=== PATIENT | female | born 1940 | race Caucasian/White ===

== ENCOUNTER 2017-09-19 07:37 | Observation (INO) | payer MEDICARE, OTHER ==
[2017-09-19] MEDS ORDERED: ASPIRIN 81 MG PO STA (08:15)
[2017-09-19] MEDS ORDERED: NITROGLYCERIN OINT 1 INCH/GM PACKET TOPICAL STA (08:15)
--- NOTE | 2017-09-19 08:17 | ED ---
General Adult HPI - General Chief complaint: Chest Pain Stated complaint: SOB Time Seen by Provider: 09/19/17 07:45 Source: patient, RN notes reviewed Mode of arrival: wheelchair Limitations: no limitations - History of Present Illness Initial comments: This is a 76-year-old female who presents emergency Department with a distant history of smoking patient states she used to be a diabetic but was recently taken off metformin she does have high blood pressure and high cholesterol and a very strong family history of heart disease. She presents today complaining of difficulty breathing which started about 2:30 this morning and pressure on her lower chest. Patient states the pain radiates to her back. Patient denies any recent fever chills or cough. Patient denies any nausea or vomiting. Patient denies abdominal pain. Patient denies any lightheadedness dizziness or near-syncopal episode. Patient denies any swelling legs or calf tenderness. Patient has a history of atrial fibrillation and is on Xarelto - Related Data Home Medications Medication Instructions Recorded Confirmed Atorvastatin [Lipitor] 40 mg PO DAILY 05/23/14 09/19/17 Bethanechol Chloride [Urecholine] 25 mg PO BID 05/23/14 09/19/17 Carvedilol [Coreg] 3.125 mg PO BID 05/23/14 09/19/17 Montelukast Sodium [Singulair] 10 mg PO DAILY PRN 05/23/14 09/19/17 Aspirin EC [Ecotrin Low Dose] 81 mg PO DAILY 09/19/17 09/19/17 Lisinopril [Prinivil] 5 mg PO DAILY 09/19/17 09/19/17 Multivitamins, Thera [Multivitamin 1 tab PO DAILY 09/19/17 09/19/17 (formulary)] Rivaroxaban [Xarelto] 20 mg PO DAILY 09/19/17 09/19/17 Allergies Allergy/AdvReac Type Severity Reaction Status Date / Time albuterol AdvReac Rapid Verified 09/19/17 08:40 Heart Rate codeine AdvReac Rapid Verified 09/19/17 08:40 Heart Rate sulfamethoxazole AdvReac Nausea & Verified 09/19/17 08:40 [From Bactrim] Vomiting trimethoprim [From Bactrim] AdvReac Nausea & Verified 09/19/17 08:40 Vomiting Review of Systems ROS Statement: Those systems with pertinent positive or pertinent negative responses have been documented in the HPI. ROS Other: All systems not noted in ROS Statement are negative. Past Medical History Past Medical History: Atrial Fibrillation, Coronary Artery Disease (CAD), Chest Pain / Angina, Heart Failure, Diabetes Mellitus, Hyperlipidemia, Hypertension, Pneumonia Additional Past Medical History / Comment(s): 03/02/15 Pt presented to [facility] ER on 03/01/15 via EMS with bleeding since 0900 that day and vomiting of blood. In ER she was noted to have blood in her stool. She passed out at home and feels weak and dizzy. She is admitted with syncopy, gum hemorrhage, elevated potassioum.lethargy. Other HX: chronic systolic dysfunction with EF 55-60% low normal, NIDDM type II, hypomagnesemia, DJD, heart mummur History of Any Multi-Drug Resistant Organisms: MRSA Date of last positivie culture/infection: over 2 yrs ago- MDRO Source:: wound left abdomen Past Surgical History: Adenoidectomy, Appendectomy, Cholecystectomy, Coronary Bypass/CABG, Heart Catheterization, Orthopedic Surgery, Tonsillectomy Additional Past Surgical History / Comment(s): Cabg 4 vessel 2005? in [facility], right shoulder rotator cuff repair, right knee arthroscopy, R metatarsal surgery after fx, colonoscopy- normal Past Anesthesia/Blood Transfusion Reactions: Postoperative Nausea & Vomiting ( PONV) Past Psychological History: No Psychological Hx Reported Smoking Status: Former smoker Past Alcohol Use History: Occasional Past Drug Use History: None Reported - Past Family History Father Family Medical History: Congestive Heart Failure (CHF), CVA/TIA, Myocardial Infarction ([place]) Additional Family Medical History / Comment(s): Father at age 61 yrs. Mother Family Medical History: Congestive Heart Failure (CHF) Additional Family Medical History / Comment(s): Mother at age 83yrs. General Exam - General Exam Comments Initial Comments: GENERAL: Patient is well-developed and well-nourished. Patient is nontoxic and well- hydrated and is in mild distress. ENT: Neck is soft and supple. No significant lymphadenopathy is noted. Oropharynx is clear. Moist mucous membranes. Neck has full range of motion without eliciting any pain. EYES: The sclera were anicteric and conjunctiva were pink and moist. Extraocular movements were intact and pupils were equal round and reactive to light. Eyelids were unremarkable. PULMONARY: Unlabored respirations. Good breath sounds bilaterally. No audible rales rhonchi or wheezing was noted. CARDIOVASCULAR: There is a regular rate and rhythm without any murmurs gallops or rubs. ABDOMEN: Soft and nontender with normal bowel sounds. No palpable organomegaly was noted. There is no palpable pulsatile mass. SKIN: Skin is clear with no lesions or rashes and otherwise unremarkable. NEUROLOGIC: Patient is alert and oriented x3. Cranial nerves II through XII are grossly intact. Motor and sensory are also intact. Normal speech, volume and content. Symmetrical smile. MUSCULOSKELETAL: Normal extremities with adequate strength and full range of motion. No lower extremity swelling or edema. No calf tenderness. LYMPHATICS: No significant lymphadenopathy is noted PSYCHIATRIC: Normal psychiatric evaluation. Normal interpersonal interactions appears functionally intact in deals appropriately with others. No signs of depression. No signs of anxiety. Limitations: no limitations Course Vital Signs 09/19/17 09/19/17 07:49 09:14 Temperature 98.0 F Pulse Rate 68 69 Respiratory 18 16 Rate Blood Pressure 134/81 183/72 O2 Sat by Pulse 96 100 Oximetry Medical Decision Making - Medical Decision Making EKG shows an atrial fibrillation at a rate of 67 bpm QRS is 90 QT interval 388 QTC is 409. Patient's EKG shows no significant ST segment elevation or depression Chest x-ray shows no acute abnormality. Patient does not need to be placed on a blood thinner because she is already on a blood thinner. I spoke with Dr. Jaquez agreed to admit the patient admitted the patient I consult to need giving the patient aspirin and Nitropaste on the floor. I consult cardiology and I wrote admitting orders. - Lab Data Result diagrams: 09/19/17 08:12 09/19/17 08:12 Lab Results 09/19/17 09/19/17 09/19/17 Range/Units 08:12 08:12 08:12 WBC 11.0 H (3.8-10.6) k/uL RBC 4.77 (3.80-5.40) m/uL Hgb 13.8 (11.4-16.0) gm/dL Hct 40.8 (34.0-46.0) % MCV 85.5 (80.0-100.0) fL MCH 28.9 (25.0-35.0) pg MCHC 33.8 (31.0-37.0) g/dL RDW 15.1 (11.5-15.5) % Plt Count 206 (150-450) k/uL Neutrophils % 77 % Lymphocytes % 15 % Monocytes % 4 % Eosinophils % 2 % Basophils % 0 % Neutrophils # 8.5 H (1.3-7.7) k/uL Lymphocytes # 1.7 (1.0-4.8) k/uL Monocytes # 0.5 (0-1.0) k/uL Eosinophils # 0.2 (0-0.7) k/uL Basophils # 0.0 (0-0.2) k/uL PT (9.0-12.0) sec INR (<1.2) APTT (22.0-30.0) sec Sodium 144 (137-145) mmol/L Potassium 4.1 (3.5-5.1) mmol/L Chloride 104 (98-107) mmol/L Carbon Dioxide 27 (22-30) mmol/L Anion Gap 13 mmol/L BUN 15 (7-17) mg/dL Creatinine 0.68 (0.52-1.04) mg/dL Est GFR (CKD-EPI)AfAm >90 (>60 ml/min/1.73 sqM) Est GFR (CKD-EPI)NonAf 86 (>60 ml/min/1.73 sqM) Glucose 94 (74-99) mg/dL Calcium 9.6 (8.4-10.2) mg/dL Magnesium 1.6 (1.6-2.3) mg/dL Total Bilirubin 1.1 (0.2-1.3) mg/dL AST 36 (14-36) U/L ALT 52 (9-52) U/L Alkaline Phosphatase 71 (38-126) U/L Total Creatine Kinase 50 (30-135) U/L CK-MB (CK-2) 0.8 (0.0-2.4) ng/mL CK-MB (CK-2) Rel Index 1.6 Troponin I <0.012 (0.000-0.034) ng/mL Total Protein 6.7 (6.3-8.2) g/dL Albumin 4.1 (3.5-5.0) g/dL Amylase (30-110) U/L Lipase (23-300) U/L 09/19/17 09/19/17 Range/Units 08:12 08:12 WBC (3.8-10.6) k/uL RBC (3.80-5.40) m/uL Hgb (11.4-16.0) gm/dL Hct (34.0-46.0) % MCV (80.0-100.0) fL MCH (25.0-35.0) pg MCHC (31.0-37.0) g/dL RDW (11.5-15.5) % Plt Count (150-450) k/uL Neutrophils % % Lymphocytes % % Monocytes % % Eosinophils % % Basophils % % Neutrophils # (1.3-7.7) k/uL Lymphocytes # (1.0-4.8) k/uL Monocytes # (0-1.0) k/uL Eosinophils # (0-0.7) k/uL Basophils # (0-0.2) k/uL PT 13.9 H (9.0-12.0) sec INR 1.5 H (<1.2) APTT 36.4 H (22.0-30.0) sec Sodium (137-145) mmol/L Potassium (3.5-5.1) mmol/L Chloride (98-107) mmol/L Carbon Dioxide (22-30) mmol/L Anion Gap mmol/L BUN (7-17) mg/dL Creatinine (0.52-1.04) mg/dL Est GFR (CKD-EPI)AfAm (>60 ml/min/1.73 sqM) Est GFR (CKD-EPI)NonAf (>60 ml/min/1.73 sqM) Glucose (74-99) mg/dL Calcium (8.4-10.2) mg/dL Magnesium (1.6-2.3) mg/dL Total Bilirubin (0.2-1.3) mg/dL AST (14-36) U/L ALT (9-52) U/L Alkaline Phosphatase (38-126) U/L Total Creatine Kinase (30-135) U/L CK-MB (CK-2) (0.0-2.4) ng/mL CK-MB (CK-2) Rel Index Troponin I (0.000-0.034) ng/mL Total Protein (6.3-8.2) g/dL Albumin (3.5-5.0) g/dL Amylase 54 (30-110) U/L Lipase 66 (23-300) U/L Disposition Clinical Impression: Unstable angina pectoris Disposition: ADMITTED IP TO THIS HOSP Referrals: Verito Khan MD [Primary Care Provider] - 1-2 days Time of Disposition: 09:50
[2017-09-19 08:33] LABS: Basophils % (A) 0 %; Eosinophils # (A) 0.2 k/uL (0-0.7); Eosinophils % (A) 2 %; HCT 40.8 % (34.0-46.0); HGB 13.8 gm/dL (11.4-16.0); Lymphocytes # (A) 1.7 k/uL (1.0-4.8); Lymphocytes % (A) 15 %; MCH 28.9 pg (25.0-35.0); MCHC 33.8 g/dL (31.0-37.0); MCV 85.5 fL (80.0-100.0); Mean Platelet Volume 9.2; Monocytes # (A) 0.5 k/uL (0-1.0); Monocytes % (A) 4 %; Neutrophils # (A) 8.5 k/uL (1.3-7.7); Neutrophils % (A) 77 %; Platelet Count 206 k/uL (150-450); RBC 4.77 m/uL (3.80-5.40); RDW 15.1 % (11.5-15.5)
--- NOTE | 2017-09-19 08:35 | XR ---
EXAMINATION TYPE: XR chest 2V DATE OF EXAM: 09/19/2017 COMPARISON: 03/02/2015 HISTORY: Chest pain TECHNIQUE: Frontal and lateral views of the chest are obtained. FINDINGS: There is no focal air space opacity, pleural effusion, or pneumothorax seen. Post CABG joann nges are seen of the chest. Chronic right hemidiaphragm elevation and right pleural parenchymal scarr ing as well as left upper lung pleural parenchymal scarring are similar to the prior exam of 2014. Th e cardiac silhouette size is similar to the prior and mildly enlarged. The osseous structures are i ntact. IMPRESSION: Chronic changes with no acute cardiopulmonary process.
[2017-09-19 08:41] LABS: INR 1.5 (<1.2); Partial Thromboplastin Time 36.4 sec (22.0-30.0); Prothrombin Time 13.9 sec (9.0-12.0)
[2017-09-19 08:55] LABS: ALT 52 U/L (9-52); AST 36 U/L (14-36); Albumin 4.1 g/dL (3.5-5.0); Alkaline Phosphatase 71 U/L (38-126); Anion Gap 13 mmol/L; Blood Urea Nitrogen 15 mg/dL (7-17); Calcium 9.6 mg/dL (8.4-10.2); Carbon Dioxide 27 mmol/L (22-30); Chloride 104 mmol/L (98-107); Glucose 94 mg/dL (74-99); Magnesium 1.6 mg/dL (1.6-2.3); Potassium 4.1 mmol/L (3.5-5.1); Sodium 144 mmol/L (137-145); Total Bilirubin 1.1 mg/dL (0.2-1.3); Total Protein 6.7 g/dL (6.3-8.2)
[2017-09-19 09:02] LABS: Creatine Kinase 50 U/L (30-135)
[2017-09-19 09:14] LABS: Creatine Kinase MB 0.8 ng/mL (0.0-2.4); Troponin I <0.012 ng/mL (0.000-0.034)
[2017-09-19 09:39] LABS: Amylase 54 U/L (30-110); Lipase 66 U/L (23-300)
[2017-09-19] MEDS ORDERED: NITROGLYCERIN SL TABS 0.4 MG TAB SUBLINGUAL PRN (09:52)
[2017-09-19] MEDS ORDERED: MONTELUKAST 10 MG TAB PO PRN (10:51)
[2017-09-19] MEDS ORDERED: RIVAROXABAN 20 MG TAB PO SCH ×2 (11:00→21:00)
[2017-09-19 11:52] LABS: Creatine Kinase 46 U/L (30-135)
[2017-09-19 12:03] LABS: Creatine Kinase MB 0.8 ng/mL (0.0-2.4); Troponin I <0.012 ng/mL (0.000-0.034)
[2017-09-19] MEDS: ATORVASTATIN 40 MG TAB PO SCH (12:33)
[2017-09-19] MEDS: BETHANECHOL 25 MG TAB PO SCH ×2 (12:33→20:07)
[2017-09-19] MEDS: CARVEDILOL 3.125 MG TAB PO SCH ×2 (12:33→20:07)
[2017-09-19] MEDS: MULTIVITAMINS, THERA 1 EACH TAB PO SCH (12:40)
[2017-09-19] MEDS: LISINOPRIL 5 MG TAB PO SCH (12:42)
[2017-09-19] MEDS ORDERED: NITROGLYCERIN OINT 1 INCH/GM PACKET TOPICAL SCH (13:00)
--- NOTE | 2017-09-19 13:32 | P.CRDCN ---
History of Present Illness History of present illness: Mrs. Alva is a pleasant 76-year-old female past medical history significant for coronary artery disease s/p bypass grafting in 2005, paroxysmal atrial fibrillation on long-term anticoagulation, diabetes mellitus, dyslipidemia and hypertension. She follows Dr. Soto in the office. If necessary consultation for complaints of chest pain. She states last night she started feeling a burning/squeezing sensation in the epigastric region with associated belching. She aslo has noticed an increase in shortness of breath with exertion over the last couple days. She was up most of this night trying to get comfortable. The discomfort was worse when she would lay on her right side so she just sat up and the pain seemed to improve. She still feels mild burning in epigastric region at the time of my exam. She denies associated palpitations, nausea, vomiting, diaphoresis, PND, orthopnea or dizziness. EKG reveals atrial fibrillation with controlled ventricular response. Chest x-ray is negative for an acute cardiopulmonary process. With evidence of chronic changes. Laboratory data reviewed, WBC 11, hemoglobin 13.8, platelets 206, sodium 144, potassium 4.1, magnesium 1.6, creatinine 0.68, cardiac enzymes negative 2. Current cardiac medications include atorvastatin 40 mg daily, carvedilol 3.125 mg twice a day, Xarelto 20 mg daily, aspirin 81 mg daily and lisinopril 5 mg daily. Most recent echocardiogram performed in the office reveals preserved left ventricular systolic function with ejection fraction 55% with moderate MR, aortic insufficiency and a dilated aortic root. Most recent Lexiscan performed in the office December 2015 was negative for reversible cardiac ischemia. Review of Systems At the time of my exam: CONSTITUTIONAL: Denies fever. Denies chills. EYES: Denies blurred vision. Denies vision changes. Denies eye pain. EARS, NOSE, MOUTH & THROAT: Denies headache. Denies sore throat. Denies ear pain. CARDIOVASCULAR: Denies chest pain. Complains of exertional shortness of breath. Denies orthopnea. Denies PND. Denies palpitations. RESPIRATORY: Denies cough. GASTROINTESTINAL: Complains of epigastric discomfort. Denies diarrhea. Denies constipation. Denies nausea. Denies vomiting. MUSCULOSKELETAL: Denies myalgias. INTEGUMENTARY: Denies pruitis. Denies rash. NEUROLOGIC: Denies numbness. Denies tingling. Denies weakness. PSYCHIATRIC: Denies anxiety. Denies depression. ENDOCRINE: Denies fatigue. Denies weight change. Denies polydipsia. Denies polyurina. GENITOURINARY: Denies burning, hematuria or urgency with micturation. HEMATOLOGIC: Denies history of anemia. Denies bleeding. Past Medical History Past Medical History: Atrial Fibrillation, Coronary Artery Disease (CAD), Chest Pain / Angina, Heart Failure, Diabetes Mellitus, Hyperlipidemia, Hypertension, Pneumonia, Syncope Additional Past Medical History / Comment(s): Afib/flutter, blood loss anemia/ syncope after teeth extraction/hemorrhage with blood transfusion, murmur, hypomagnesemia, frequent UTIs/bladder tipped and does not empty entirely, past r foot fracture with surgery. History of Any Multi-Drug Resistant Organisms: MRSA Date of last positivie culture/infection: 2012 MDRO Source:: wound left abdomen Past Surgical History: Adenoidectomy, Appendectomy, Cholecystectomy, Coronary Bypass/CABG, Heart Catheterization, Orthopedic Surgery, Tonsillectomy Additional Past Surgical History / Comment(s): Cabg 4 vessel 2005? in [facility], right shoulder rotator cuff repair, right knee arthroscopy, R metatarsal surgery after fx, colonoscopy- normal Past Anesthesia/Blood Transfusion Reactions: Postoperative Nausea & Vomiting ( PONV) Additional Past Anesthesia/Blood Transfusion Reaction / Comment(s): Pt has received blood in past without reaction. Smoking Status: Former smoker - Past Family History Father Family Medical History: Congestive Heart Failure (CHF), CVA/TIA, Myocardial Infarction ([place]) Additional Family Medical History / Comment(s): Father at age 61 yrs. Mother Family Medical History: Congestive Heart Failure (CHF) Additional Family Medical History / Comment(s): Mother at age 83yrs. Medications and Allergies Home Medications Medication Instructions Recorded Confirmed Type Atorvastatin [Lipitor] 40 mg PO DAILY 05/23/14 09/19/17 History Bethanechol Chloride [Urecholine] 25 mg PO BID 05/23/14 09/19/17 History Carvedilol [Coreg] 3.125 mg PO BID 05/23/14 09/19/17 History Montelukast Sodium [Singulair] 10 mg PO DAILY PRN 05/23/14 09/19/17 History Aspirin EC [Ecotrin Low Dose] 81 mg PO DAILY 09/19/17 09/19/17 History Lisinopril [Prinivil] 5 mg PO DAILY 09/19/17 09/19/17 History Multivitamins, Thera [Multivitamin 1 tab PO DAILY 09/19/17 09/19/17 History (formulary)] Rivaroxaban [Xarelto] 20 mg PO DAILY 09/19/17 09/19/17 History Allergies Allergy/AdvReac Type Severity Reaction Status Date / Time albuterol AdvReac Rapid Verified 09/19/17 08:40 Heart Rate codeine AdvReac Rapid Verified 09/19/17 08:40 Heart Rate sulfamethoxazole AdvReac Nausea & Verified 09/19/17 08:40 [From Bactrim] Vomiting trimethoprim [From Bactrim] AdvReac Nausea & Verified 09/19/17 08:40 Vomiting Physical Exam Vitals: Vital Signs Temp Pulse Pulse Resp BP BP Pulse Ox 09/19/17 10:40 97.7 F 58 L 18 143/84 95 09/19/17 10:33 98.2 F 60 16 158/80 100 09/19/17 09:14 69 16 183/72 100 09/19/17 07:49 98.0 F 68 18 134/81 96 Intake and Output 09/18/17 09/19/17 09/19/17 22:59 06:59 14:59 Other: Weight 85.275 kg Blood pressure 143/84 rate 58 afebrile maintaining oxygen saturation on room air GENERAL: This is a 76-year-old female in no apparent distress at the time of my examination. HEENT: Head is atraumatic, normocephalic. Pupils are equal, round. Sclerae anicteric. Conjunctivae are clear. Mucous membranes of the mouth are moist. Neck is supple. There is no jugular venous distention. No carotid bruit is heard. LUNGS: Clear to auscultation no wheezes, rales or rhonchi. No chest wall tenderness is noted on palpation or with deep breathing. HEART: Regular rate and rhythm with systolic ejection murmur at the base, no rubs or gallops. S1 and S2 heard. ABDOMEN: Soft, nontender. Bowel sounds are heard. No organomegaly noted. EXTREMITIES: No evidence of peripheral edema and no calf tenderness noted. VASCULAR: Radial and dorsalis pedis pulses palpated, no evidence of clubbing. NEUROLOGIC: Patient is awake, alert and oriented x3. Results 09/19/17 08:12 09/19/17 08:12 Cardiac Enzymes 09/19/17 09/19/17 09/19/17 Range/Units 08:12 08:12 10:59 AST 36 (14-36) U/L CK-MB (CK-2) 0.8 0.8 (0.0-2.4) ng/mL Troponin I <0.012 <0.012 (0.000-0.034) ng/mL Coagulation 09/19/17 Range/Units 08:12 PT 13.9 H (9.0-12.0) sec APTT 36.4 H (22.0-30.0) sec CBC 09/19/17 Range/Units 08:12 WBC 11.0 H (3.8-10.6) k/uL RBC 4.77 (3.80-5.40) m/uL Hgb 13.8 (11.4-16.0) gm/dL Hct 40.8 (34.0-46.0) % Plt Count 206 (150-450) k/uL Comprehensive Metabolic Panel 09/19/17 Range/Units 08:12 Sodium 144 (137-145) mmol/L Potassium 4.1 (3.5-5.1) mmol/L Chloride 104 (98-107) mmol/L Carbon Dioxide 27 (22-30) mmol/L BUN 15 (7-17) mg/dL Creatinine 0.68 (0.52-1.04) mg/dL Glucose 94 (74-99) mg/dL Calcium 9.6 (8.4-10.2) mg/dL AST 36 (14-36) U/L ALT 52 (9-52) U/L Alkaline Phosphatase 71 (38-126) U/L Total Protein 6.7 (6.3-8.2) g/dL Albumin 4.1 (3.5-5.0) g/dL Current Medications Generic Name Dose Route Start Last Admin Trade Name Freq PRN Reason Stop Dose Admin Aspirin 81 mg 09/20/17 09:00 Aspirin PO DAILY [facility] Atorvastatin Calcium 40 mg 09/19/17 11:00 09/19/17 12:33 Lipitor PO Not Given DAILY [facility] Bethanechol Chloride 25 mg 09/19/17 11:00 09/19/17 12:33 Urecholine PO Not Given BID SUZAN Carvedilol 3.125 mg 09/19/17 11:00 09/19/17 12:33 Coreg PO Not Given BID SUZAN Lisinopril 5 mg 09/19/17 21:00 Zestril PO HS [facility] Montelukast Sodium 10 mg 09/19/17 10:51 Singulair PO DAILY PRN Allergy Symptoms Multivitamins 1 each 09/19/17 12:00 09/19/17 12:40 Theragran PO Not Given DAILY@1200 [facility] Nitroglycerin 1 inch 09/19/17 13:00 Nitro-Bid Oint TOPICAL Q6HR [facility] Nitroglycerin 0.4 mg 09/19/17 09:52 Nitrostat SUBLINGUAL Q5M PRN Chest Pain Rivaroxaban 20 mg 09/19/17 21:00 Xarelto PO HS SUZAN Intake and Output 09/18/17 09/19/17 09/19/17 22:59 06:59 14:59 Other: Weight 85.275 kg Patient Weight 09/20/17 06:59 Weight 85.275 kg 09/19/17 08:12 09/19/17 08:12 Assessment and Plan Assessment: ASSESSMENT 1. Epigastric pain. Atypical for cardiac etiology. 2. History of coronary artery disease status post bypass grafting in [facility] 2005. 3. Hypertension, controlled. 4. Paroxysmal atrial fibrillation with controlled ventricular response on long- term anticoagulation 5. Dyslipidemia PLAN Obtain 2-D echocardiogram and Doppler study to assess cardiac structure and function. Continue to obtain serial cardiac enzymes to rule out an acute coronary event. If third set of cardiac enzymes are negative we will proceed with Lexiscan stress test in the morning. NPO after midnight tonight. Will hold Xarelto in the event she may need a heart catheterization. Continue atorvastatin, aspirin, Coreg and lisinopril at home doses. Thank you kindly for this consultation. Nurse Practitioner note has been reviewed, I agree with a documented findings and plan of care. Patient was seen and examined.
[2017-09-19] MEDS ORDERED: AMINOPHYLLINE 500 MG/20 ML VIAL IV PRN (13:54)
[2017-09-19] MEDS ORDERED: FUROSEMIDE 10 MG/ML 4 ML VIAL IV STA (15:55)
--- NOTE | 2017-09-19 17:16 | HP ---
HISTORY AND PHYSICAL DATE OF ADMISSION: 09/19/17. DATE OF SERVICE: 09/19/17 PRESENT COMPLAINT: Chest pressure, shortness of breath. 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 The patient's chronic stable medical conditions include hypertension, coronary artery disease with a bypass in 2005, hyperlipidemia, diabetes, and atrial fibrillation for which the patient is on Xarelto. The patient around 2:30 this morning was woken up with a pressure sensation in the chest and felt bloating in the stomach. The patient was short of breath. Did feel lightheaded. No dizzy. No perspiration. [place] totally exhausted and run down. No fever, chills, and decided to come down to the ER. The patient is otherwise reasonably active. The patient does not remember the last time she had a stress test. Chest pressure did not radiate and was still present when I saw this patient this morning to a hospital technician extent. Cardiology had been consulted. REVIEW OF SYSTEMS: CONSTITUTIONAL: Tired. HEENT: None. RESPIRATORY: As above. CARDIOVASCULAR: As above. GASTROINTESTINAL: None. GENITOURINARY: None. MUSCULOSKELETAL: Arthritic pain in the joints. DERMATOLOGICAL, HEMATOLOGIC, LYMPHATIC: None. PSYCHIATRY: None. NEUROLOGICAL: None. PAST MEDICAL HISTORY: Hypertension, congestive heart failure, hyperlipidemia, diabetes, atrial fibrillation, osteoarthritis, coronary artery disease. PAST SURGICAL HISTORY: Adenoidectomy, appendectomy, cholecystectomy, coronary bypass, 4 vessel in 2005 in [facility], right shoulder rotator cuff repair, right knee arthroscopy, right metatarsal surgery, colonoscopy. SOCIAL HISTORY: Lives alone. The patient has smoked for about 7 years, stopped at the age of 27. Alcohol occasionally. FAMILY HISTORY: Congestive heart failure, stroke, myocardial infarction. Father at the age of 61. HOME MEDICATIONS: Multivitamin 1 tablet p.o. daily, Prinivil 5 mg p.o. daily, aspirin 81 mg p.o. daily, Xarelto 20 mg p.o. daily, Singulair 10 mg daily p.r.n., Coreg 3.125 p.o. b.i.d., Urecholine 25 mg p.o. b.i.d., Lipitor 40 mg p.o. daily. ALLERGIES: To ALBUTEROL, CODEINE, BACTRIM. PHYSICAL EXAMINATION: VITAL SIGNS ON PRESENTATION: Temperature 98, pulse 68, respiratory 18, blood pressure 134/81, pulse ox 96% on room air. GENERAL APPEARANCE: Well built, BMI 32.3, sitting up, anxious-appearing. EYES: Pupils equal. Conjunctivae normal. HEENT: External appearance of nose and ears normal. Oral cavity normal. NECK: JVD unable to assess. Mass not palpable. RESPIRATORY: Effort, lungs slightly decreased breath sounds. CARDIOVASCULAR: First and second sounds normal, minimal edema. ABDOMEN: Soft, nontender. Liver and spleen not palpable. LYMPHATIC: No lymph node palpable in the neck or axillae. PSYCHIATRY: Alert and oriented x3. Mood and affect normal. NEUROLOGICAL: Pupils equal. Cranial nerves grossly intact. Power and sensation grossly intact. MUSCULOSKELETAL: Evidence of osteoarthritis especially in the hands. INVESTIGATIONS: White count 11, hemoglobin 13.8, potassium 4.1, BUN and creatinine are normal. Troponin x2 negative. ProBNP 3280. Chest x-ray shows some cardiomegaly, cephalization of the veins and fluid in the horizontal fissure. ASSESSMENT: 1. Acute congestive heart failure exacerbation probably on chronic congestive heart failure. Ejection fraction not known in patient with known underlying coronary artery disease, possible unstable angina in a patient with known coronary artery disease. 2. Persistent atrial fibrillation, rate controlled, chronically on Xarelto. 3. Essential hypertension. 4. Hyperlipidemia. 5. Primary osteoarthritis. PLAN: We will give the patient 1 dose of IV Lasix now and add oral Lasix. Cardiology was consulted. Plan to do a stress test tomorrow. Care was discussed with the patient. Questions were answered. Copy to Dr. Khan. MMLISANDRAL / IJN: [id number] /
[2017-09-19] MEDS ORDERED: ACETAMINOPHEN TAB 325 MG TAB PO PRN (19:58)
[2017-09-19] MEDS: FUROSEMIDE 10 MG/ML 4 ML VIAL IV SCH (20:03)
[2017-09-19] MEDS ORDERED: LISINOPRIL 5 MG TAB PO SCH (21:00)
[2017-09-19 21:24] LABS: Creatine Kinase 86 U/L (30-135)
[2017-09-19 21:36] LABS: Creatine Kinase MB 1.2 ng/mL (0.0-2.4); Troponin I <0.012 ng/mL (0.000-0.034)
[2017-09-20] MEDS: FUROSEMIDE 10 MG/ML 4 ML VIAL IV SCH ×3 (05:15→23:05)
[2017-09-20] MEDS ORDERED: REGADENOSON 0.4 MG/5 ML SYRINGE IV ONE (06:00)
[2017-09-20 08:18] LABS: Anion Gap 13 mmol/L; Blood Urea Nitrogen 16 mg/dL (7-17); Calcium 9.3 mg/dL (8.4-10.2); Carbon Dioxide 31 mmol/L (22-30); Chloride 99 mmol/L (98-107); Cholesterol 127 mg/dL (<200); Glucose 77 mg/dL (74-99); HDL Cholesterol 34 mg/dL (40-60); LDL Cholesterol,Calculated 74 mg/dL (0-99); Sodium 143 mmol/L (137-145); Triglycerides 93 mg/dL (<150)
[2017-09-20] MEDS ORDERED: ASPIRIN 325 MG TAB PO SCH (09:00)
[2017-09-20] MEDS ORDERED: FUROSEMIDE 40 MG TAB PO SCH (09:00)
--- NOTE | 2017-09-20 10:52 | NM ---
EXAMINATION TYPE: NM stress lexiscan cardiolite DATE OF EXAM: 09/20/2017 COMPARISON: NONE HISTORY: Precordial chest pain and abnormal EKG TECHNIQUE: After the intravenous administration of 10.9 mCi Tc 99m Sestamibi - Cardiolite resting SP ECT images acquired 90 minutes post injection. The patient received 0.4mg Lexiscan, 25.7 mCi Tc 99m Sestamibi - Stress images obtained [address] injection FINDINGS: Review of stress and rest SPECT images demonstrates no distinct perfusion abnormality. Gated analysi s shows normal wall motion with an estimated left ventricular ejection fraction of 69 %. IMPRESSION: No scintigraphic evidence for reversible ischemia.
[2017-09-20] MEDS: MULTIVITAMINS, THERA 1 EACH TAB PO SCH (11:38)
[2017-09-20] MEDS: ASPIRIN 81 MG PO SCH (11:38)
[2017-09-20] MEDS: ATORVASTATIN 40 MG TAB PO SCH (11:38)
[2017-09-20] MEDS: BETHANECHOL 25 MG TAB PO SCH ×2 (11:38→23:06)
--- NOTE | 2017-09-20 11:57 | ECHOF ---
Referral Reason:cp, murmur MEASUREMENTS -------- HEIGHT: 162.6 cm WEIGHT: 85.3 kg BP: 143/84 RVIDd: 3.3 cm (< 3.3) IVSd: 1.3 cm (0.6 - 1.1) LVIDd: 4.5 cm (3.9 - 5.3) LVPWd: 1.3 cm (0.6 - 1.1) IVSs: 1.9 cm LVIDs: 3.2 cm LVPWs: 1.4 cm LA Diam: 5.6 cm (2.7 - 3.8) LAESV Index (A-L): 72.34 ml/m Ao Diam: 3.2 cm (2.0 - 3.7) AV Cusp: 1.4 cm (1.5 - 2.6) LA Diam: 5.3 cm (2.7 - 3.8) MV EXCURSION: 14.382 mm (> 18.000) MV EF SLOPE: 41 mm/s (70 - 150) EPSS: 0.4 cm MV E Chuck: 1.34 m/s MV DecT: 289 ms MV A Chuck: 0.29 m/s MV E/A Ratio: 4.58 AR PHT: 656 ms RAP: 15.00 mmHg RVSP: 61.31 mmHg FINDINGS -------- Atrial fibrillation. This was a technically good study. The left ventricular size is normal. There is moderate concentric left ventricular hypertrophy. O verall left ventricular systolic function is low-normal with, an EF between 50 - 55 %. Mitral Doppl er inflow pattern suggests diastolic filling abnormality 22.19. The right ventricle is normal in size. The left atrium is markedly dilated. LA is severely dilated >40 ml/m2 The right atrial size is normal. There is mild aortic valve sclerosis. There is mild aortic regurgitation. Mild mitral annular calcification present. Moderate mitral regurgitation is present. Moderate to severe tricuspid regurgitation present. There is moderate pulmonary hypertension. The right ventricular systolic pressure, as measured by Doppler, is 61.31mmHg. Trace/mild (physiologic) pulmonic regurgitation. The aortic root size is normal. There is no pericardial effusion. CONCLUSIONS -------- 1. Atrial fibrillation. 2. This was a technically good study. 3. The left ventricular size is normal. 4. There is moderate concentric left ventricular hypertrophy. 5. Overall left ventricular systolic function is low-normal with, an EF between 50 - 55 %. 6. Mitral Doppler inflow pattern suggest diastolic filling abnormality 22.19. 7. The right ventricle is normal in size. 8. The left atrium is markedly dilated. 9. LA is severely dilated >40 ml/m2 10. The right atrial size is normal. 11. There is mild aortic valve sclerosis. 12. There is mild aortic regurgitation. 13. Mild mitral annular calcification present. 14. Moderate mitral regurgitation is present. 15. Moderate to severe tricuspid regurgitation present. 16. There is moderate pulmonary hypertension. 17. The right ventricular systolic pressure, as measured by Doppler, is 61.31mmHg. 18. Trace/mild (physiologic) pulmonic regurgitation. 19. The aortic root size is normal. 20. There is no pericardial effusion. RECEIVING LEAD: Cat De Oliveira RDCS
[2017-09-20] MEDS: CARVEDILOL 3.125 MG TAB PO SCH (12:30)
--- NOTE | 2017-09-20 13:42 | P.PN ---
Subjective Mrs. Alva is a pleasant 76-year-old female past medical history significant for coronary artery disease s/p bypass grafting in 2006, paroxysmal atrial fibrillation on long-term anticoagulation, diabetes mellitus, dyslipidemia and hypertension. She follows Dr. Soto in the office. If necessary consultation for complaints of chest pain. She states last night she started feeling a burning/squeezing sensation in the epigastric region with associated belching. She aslo has noticed an increase in shortness of breath with exertion over the last couple days. She was up most of this night trying to get comfortable. The discomfort was worse when she would lay on her right side so she just sat up and the pain seemed to improve. She still feels mild burning in epigastric region at the time of my exam. She denies associated palpitations, nausea, vomiting, diaphoresis, PND, orthopnea or dizziness. EKG reveals atrial fibrillation with controlled ventricular response. Chest x-ray is negative for an acute cardiopulmonary process. With evidence of chronic changes. Laboratory data reviewed, WBC 11, hemoglobin 13.8, platelets 206, sodium 144, potassium 4.1, magnesium 1.6, creatinine 0.68, cardiac enzymes negative 2. Current cardiac medications include atorvastatin 40 mg daily, carvedilol 3.125 mg twice a day, Xarelto 20 mg daily, aspirin 81 mg daily and lisinopril 5 mg daily. Most recent echocardiogram performed in the office reveals preserved left ventricular systolic function with ejection fraction 55% with moderate MR, aortic insufficiency and a dilated aortic root. Most recent Lexiscan performed in the office December 2015 was negative for reversible cardiac ischemia. 09/21/2017 Mrs. Alva is seen and examined today. We checked a proBNP yesterday secondary to complaints of exertional dyspnea which was elevated at 3280. She received one dose of IV Lasix last night and did feel some relief in her shortness of breath. Lexiscan stress test was performed this morning which was negative for evidence of reversible cardiac ischemia. Blood pressure 157/78 heart rate 63 afebrile maintaining oxygen saturation on room air. Echocardiogram performed yesterday reveals preserved left ventricular systolic function with ejection fraction 50-55%, severely dilated left atrium, mild aortic valve sclerosis, mild aortic regurgitation, moderate mitral regurgitation and moderate pulmonary hypertension with RVSP of 61.31 mmHg. Laboratory data reviewed, sodium 143, potassium 4.0, creatinine 0.75, LDL of 74 , HDL 34. Objective - Vital Signs Vital signs: Vital Signs Temp 97.7 F 09/20/17 08:00 Pulse 62 09/20/17 08:00 Resp 16 09/20/17 08:00 BP 156/74 09/20/17 08:00 Pulse Ox 94 L 09/20/17 08:00 Intake & Output 09/19/17 09/20/17 09/20/17 18:59 06:59 18:59 Intake Total 680 Balance 680 Weight 85.275 kg 85.275 kg Intake: Oral 480 Other 200 Other: Voiding Method Toilet Toilet Toilet # Voids 1 - Exam GENERAL: Well-appearing, well-nourished and in no acute distress. NECK: Supple without JVD or thyromegaly. LUNGS: Breath sounds clear to auscultation bilaterally. Respiration equal and unlabored. No wheezes, rales or rhonchi. HEART: Regular rate and rhythm with systolic ejection murmur at the base, no rubs or gallops. S1 and S2 heard. EXTREMITIES: Normal range of motion, no edema. No clubbing or cyanosis. Peripheral pulses intact and strong. - Labs CBC & Chem 7: 09/19/17 08:12 09/20/17 06:43 Labs: Abnormal Lab Results - Last 24 Hours (Table) 09/20/17 Range/Units 06:43 Carbon Dioxide 31 H (22-30) mmol/L HDL Cholesterol 34 L (40-60) mg/dL Assessment and Plan Assessment: ASSESSMENT 1. Epigastric pain. Atypical for cardiac etiology. 2. Acute on chronic diastolic heart failure, mild with elevated proBNP 3. History of coronary artery disease status post bypass grafting in [facility] 2005. 4. Hypertension, controlled. 5. Paroxysmal atrial fibrillation with controlled ventricular response on long- term anticoagulation 6. Dyslipidemia PLAN Decrease IV Lasix to 40 mg twice a day. Increase lisinopril to 10 mg daily and increase carvedilol 6.25 mg twice a day. Resume xarelto 20 mg daily. Repeat BMP in the morning. Anticipate discharge in the next 24 hours. Nurse Practitioner note has been reviewed, I agree with a documented findings and plan of care. Patient was seen and examined.
--- NOTE | 2017-09-20 14:05 | EST ---
EXERCISE STRESS AGE: 76 SEX: F HT: 64" WT: 188 PROTOCOL: Lexiscan Cardiolite Stress Test HEART RATE REST: 59 BLOOD PRESSURE REST: 140/87 MAXIMUM HEART RATE ACHIEVED: 76 MAXIMUM BLOOD PRESSURE: 186/73 INDICATIONS: Chest pain. CLINICAL INFORMATION: Lexiscan Cardiolite study was performed. Peak heart rate of 76, was achieved. Maximum blood pressure of 186/73 mmHg was noted. The resting EKG shows evidence of atrial fibrillation with normal QRS complex, and nonspecific ST-T changes. No ST-segment depression suggestive of ischemia is noted. The results of the nuclear study will follow. MMODL / IJN: [id number] /
[2017-09-20] MEDS: CARVEDILOL 6.25 MG TAB PO SCH (17:29)
[2017-09-20] MEDS ORDERED: RIVAROXABAN 20 MG TAB PO SCH (17:30)
--- NOTE | 2017-09-20 20:47 | PN ---
PROGRESS NOTE DATE OF SERVICE: 09/20/2017 PRESENTING COMPLAINT: Short of breath. INTERVAL HISTORY: This patient presented with acute CHF exacerbation and some chest pressure. The patient was started on IV Lasix. Breathing is much improved today. Patient did undergo a stress test that was negative. Patient is able to walk up to the bathroom, feeling much better now. REVIEW OF SYSTEMS: Done for constitutional, cardiovascular, GI, pulmonary; relevant findings as above. CURRENT MEDICATIONS: Current medications include IV Lasix. PHYSICAL EXAMINATION: Temperature 97.7, pulse 63, respiration 16, blood pressure 157/78, pulse ox 94% on room air. GENERAL APPEARANCE: Lying in bed, more comfortable. EYES: Pupils equal. Conjunctivae normal. HEENT: External appearance of nose and ears normal. Oral cavity normal. NECK: JVD less raised. Mass not palpable. RESPIRATORY: Effort normal. LUNGS: Decreased breath sounds. CARDIOVASCULAR: First and second sounds normal. No edema. ABDOMEN: Soft, non-tender. Liver and spleen not palpable. PSYCHIATRY: Alert and oriented x3. Mood and affect normal. INVESTIGATIONS: Potassium 4. ProBNP 2390. Nuclear stress test: no evidence of ischemia. Two-D echocardiogram showed EF 50% to 55% with moderate concentric left ventricular hypertrophy, moderate to severe tricuspid regurgitation, moderate mitral regurgitation. ASSESSMENT: 1. Acute on chronic congestive heart failure exacerbation from diastolic dysfunction, ejection fraction 55% to 60%, from underlying coronary artery disease. 2. Persistent atrial fibrillation, rate controlled; chronically on Xarelto. 3. Essential hypertension. 4. Hyperlipidemia. 5. Primary osteoarthritis. 6. Moderate mitral regurgitation and severe tricuspid regurgitation, non-rheumatic. 7. Hypertensive heart disease. PLAN: Will keep the patient on IV Lasix. Encourage the patient to be out of bed. Hoping patient can be discharged tomorrow. Questions were answered. MMODL / IJN: [id number] /
[2017-09-20] MEDS ORDERED: LISINOPRIL 10 MG TAB PO SCH (21:00)
[2017-09-20] MEDS: LISINOPRIL 5 MG TAB PO SCH (23:06)
[2017-09-21 08:18] VITALS: RESP 18
[2017-09-21] MEDS: ASPIRIN 81 MG PO SCH (08:18)
[2017-09-21] MEDS: ATORVASTATIN 40 MG TAB PO SCH (08:18)
[2017-09-21] MEDS: CARVEDILOL 6.25 MG TAB PO SCH (08:18)
[2017-09-21] MEDS: BETHANECHOL 25 MG TAB PO SCH (08:18)
[2017-09-21] MEDS: FUROSEMIDE 10 MG/ML 4 ML VIAL IV SCH (08:19)
[2017-09-21 08:23] LABS: Calcium 10.1 mg/dL (8.4-10.2); Potassium 4.5 mmol/L (3.5-5.1)
[2017-09-21 12:25] VITALS: TEMP 97.9
[2017-09-21] MEDS: MULTIVITAMINS, THERA 1 EACH TAB PO SCH (15:37)
[2017-09-21 15:41] VITALS: BP 120/62; PULSE 78
[2017-09-21] MEDS ORDERED: FUROSEMIDE 20 MG TAB PO SCH (16:00)
--- NOTE | 2017-09-21 20:06 | DS ---
DISCHARGE SUMMARY DATE OF ADMISSION: 09/19/2017. DATE OF DISCHARGE: 09/21/2017 FINAL DIAGNOSES: 1. Acute on chronic congestive heart failure from diastolic dysfunction, ejection fraction 55%-60% from underlying coronary artery disease. 2. Persistent atrial fibrillation, rate controlled. 3. Essential hypertension. 4. Hyperlipidemia. 5. Primary osteoarthritis. 6. Moderate mitral regurgitation and severe tricuspid regurgitation, nonrheumatic. 7. Hypertensive heart disease. HOSPITAL COURSE: This patient with shortness of breath, found to be in congestive heart failure, responded well to IV Lasix. The patient did undergo a nuclear stress test that was negative. 2D echo showed the above findings with preserved LV function. By the time of discharge, patient feels much better, up and about. Care was discussed with the patient. CONSULTATION: Dr. Margarette Morris from cardiology. DISCHARGE MEDICATIONS: 1. Lipitor 40 mg p.o. daily. 2. Urecholine 25 mg p.o. b.i.d. 3. Singulair 10 mg p.o. daily p.r.n. 4. Aspirin 81 mg p.o. daily. 5. Multivitamin tablet p.o. daily. 6. Xarelto 20 mg p.o. daily. 7. Coreg 6.25 p.o. b.i.d. 8. Lasix 20 mg p.o. b.i.d. 9. Zestril 10 mg p.o. q.h.s. Follow up with Dr. Ramos on 10/05/2017. Follow up with Verito Khan in 3-5 days. EXAM: Lungs are clear. CARDIOVASCULAR: First and second sounds normal. MMODL / IJN: [id number] /
== END 2017-09-21 16:31 | disposition home or self-care (01) ==
LOC: EC 07:37 → 3OBS 09:52
PROVIDERS: ADMIT Hospitalist; ATTEND Hospitalist
DX: I11.0 Hypertensive heart disease with heart failure (principal); I50.33 Acute on chronic diastolic (congestive) heart failure; I48.1 Persistent atrial fibrillation; E78.5 Hyperlipidemia, unspecified; M19.91 Primary osteoarthritis, unspecified site; I34.0 Nonrheumatic mitral (valve) insufficiency; I36.1 Nonrheumatic tricuspid (valve) insufficiency; Z95.1 Presence of aortocoronary bypass graft; E11.9 Type 2 diabetes mellitus without complications; I48.0 Paroxysmal atrial fibrillation; I25.10 Atherosclerotic heart disease of native coronary artery without angina pectoris; Z90.49 Acquired absence of other specified parts of digestive tract; Z87.891 Personal history of nicotine dependence; Z82.3 Family history of stroke; Z79.01 Long term (current) use of anticoagulants; Z79.899 Other long term (current) drug therapy; Z79.82 Long term (current) use of aspirin; Z88.5 Allergy status to narcotic agent; Z88.8 Allergy status to other drugs, medicaments and biological substances; Z88.2 Allergy status to sulfonamides; Z87.01 Personal history of pneumonia (recurrent); I48.92 Unspecified atrial flutter; D50.0 Iron deficiency anemia secondary to blood loss (chronic); Z87.440 Personal history of urinary (tract) infections; E83.42 Hypomagnesemia; Z86.14 Personal history of Methicillin resistant Staphylococcus aureus infection; R10.13 Epigastric pain
CPT/HCPCS: 99285 ×2; 96374; 96376 ×2; 36415; 94760 ×2; 93017; 93306; 83880 ×2; 80061; 80053; 80048 ×2; 82150; 82550; 82553; 83690; 83735; 84484; 85025; 85610; 85730; 71046; 78452; G0378 ×3; A9500; J1940 ×3; J2785; 93005

== ENCOUNTER → 2019-04-24 | Outpatient (CLI) | payer MEDICARE, OTHER ==
[2019-04-24 18:54] LABS: African American GFR (CKD) 97.5 (60.0-200.0); Anion Gap 7.9 mmol/L (4.00-12.00); BUN/Creat Ratio 24.29 Ratio (12.00-20.00); Calcium 9.8 mg/dL (8.7-10.3); Carbon Dioxide 29.1 mmol/L (21.6-31.8); Non-African American GFR(CKD) 84.2 (60.0-200.0); Potassium 4.2 mmol/L (3.5-5.5)
== END | disposition home or self-care (01) ==
LOC: LABWHC1 10:59
PROVIDERS: ATTEND Physician Assistant
DX: I10 Essential (primary) hypertension (principal)
CPT/HCPCS: 36415; 80048

== ENCOUNTER → 2020-01-12 | Outpatient (CLI) | payer MEDICARE, OTHER ==
[2020-01-12 09:51] LABS: HCT 44.8 % (34.0-46.0); HGB 14.1 gm/dL (11.4-16.0); MCH 27.8 pg (25.0-35.0); MCHC 31.5 g/dL (31.0-37.0); MCV 88.3 fL (80.0-100.0); Mean Platelet Volume 9.3; Platelet Count 237 k/uL (150-450); RBC 5.07 m/uL (3.80-5.40); RDW 14.6 % (11.5-15.5); WBC 8.9 k/uL (3.8-10.6)
[2020-01-12 10:03] LABS: African American GFR (CKD) >90 (>60 ml/min/1.73 sqM); Blood Urea Nitrogen 22 mg/dL (7-17); Magnesium 1.7 mg/dL (1.6-2.3); Non-African American GFR(CKD) 83 (>60 ml/min/1.73 sqM)
== END | disposition home or self-care (01) ==
LOC: LABPAT 08:58
PROVIDERS: ATTEND Internal Medicine Clinical Cardiac Electrophysiology
DX: Z01.818 Encounter for other preprocedural examination (principal); I48.21 Permanent atrial fibrillation
CPT/HCPCS: 36415; 82565; 83735; 84520; 85027

== ENCOUNTER → 2020-01-16 | Day surgery (SDC) | payer MEDICARE, OTHER ==
[2020-01-13 16:10] VITALS: BMI 29.4
[~2020-01-16] MED LIST: BENZOCAINE SPRAY 1 CAN TOPICAL ONE; MIDAZOLAM 2 MG/2 ML VIAL IV ONE; SODIUM CHLORIDE 0.9% 500 ML 500 ML IV ONE; fentaNYL (PF) 50 MCG/ML 2 ML AMP ONE; hydrALAZINE HCL 20 MG/ML 1 ML VIAL ONE
[2020-01-16 08:12] VITALS: RESP 18; TEMP 98.4
[2020-01-16] MEDS: BENZOCAINE SPRAY 1 CAN TOPICAL ONE ×2 (09:05→09:09)
[2020-01-16] MEDS: fentaNYL (PF) 50 MCG/ML 2 ML AMP IV ONE ×2 (09:12→09:31)
[2020-01-16] MEDS: MIDAZOLAM 2 MG/2 ML VIAL IV ONE ×2 (09:16→09:25)
--- NOTE | 2020-01-16 10:37 | P.TEE ---
Indications for Procedure(s): Moderate to severe mitral regurgitation, moderate aortic insufficiency, angina Date of Procedure: 01/16/20 Description of Procedure(s): Procedure performed: Transesophageal Echocardiogram, moderate conscious sedation Moderate conscious sedation: Moderate conscious sedation was supplied with direct supervision of myself using Versed and Fentanyl. Complications: none Indications: Moderate to severe mitral regurgitation, moderate aortic insufficiency History: Patient is a pleasant 79 year old female with history of hypertension, coronary artery disease status post CABG, atrial fibrillation on anticoagulation and poly-valvular disease with recent echo showing moderate to severe mitral regurgitation, moderate aortic insufficiency and severe tricuspid regurgitation. Patient has been having increasing decrease in exercise tolerance and some chest pain. Due to concerns on recent echo, I was asked to perform a CONCEPCION to further evaluate degree of valvular heart disease. PROCEDURE: After the risks, benefits and alternatives of the above mentioned procedure was explained in detail with the patient, informed consent was obtained. Patient was brought to the lab in a fasting state. Patient was given IV Versed and Fentanyl for sedation. The throat was sprayed with Hurricane to anesthetize the throat. A lubricated Omni probe was then introduced into the esophagus and stomach and multiple views were obtained. Agitated saline bubbles were injected to assess for any intra-atrial shunt. The probe was then removed. Patient tolerated the procedure well. Patient was transferred to the post procedure area in stable and satisfactory condition. FINDINGS: 1. The aortic valve is tricuspid and normal in appearance. There is mild aortic valve sclerosis. There is moderate central aortic insufficiency. Degree of aortic insufficiency may be related to elevated blood pressure during exam (systolics 180-210). 2. The mitral valve appears be normal in appearance. There is moderate central mitral regurgitation. There is mild systolic blunting of the left upper and right upper pulmonary vein however no systolic flow reversal. EROA 0.31 cm2 by PISA consistent with moderate mitral regurgitation. 3. Tricuspid valve appears to be normal with mild to moderate tricuspid regurgitation. 4. The interatrial septum is intact. No evidence of PFO. 5. Left atrial appendage is free of clot. 6. Left ventricular size and function appear to be normal with ejection fraction 60% without wall motion abnormality. Conclusions: 1. Moderate central mitral regurgitation. EROA 0.31 cm2 without pulmonary systolic flow reversal consistent with moderate mitral regurgitation. Degree of mitral regurgitation may be influenced by loading hemodynamics with severe hypertension during exam (systolic blood pressures 180-210) 2. Moderate central aortic insufficiency. 3. Normal EF 60% without wall motion abnormality.
[2020-01-16 10:59] VITALS: BP 157/68; PULSE 66
--- NOTE | 2020-01-20 11:05 | CDI ---
Outpatient Documentation Clarification Form Date: 01/20/20 CDS/Head [employer] Operator Name: Catherine Fitch Phone: If any questions, call Mendy Batista [employer] Operator at [phone] Patient Name: Marielena Alva Admit Date: 01/16/20 Discharge Date: ATTENTION: The [facility] Coding Staff appreciate your assistance in clarifying documentation. Please respond to the clarification below the line at the bottom and electronically sign. The [facility] Coding staff will review the response and follow-up if needed. Please note: Queries are made part of the Legal Health Record. If you have any questions, please contact the [employer] Operator. Dear Dr. Avalos, Please provide clarification as to the procedure performed. In order to code to the greatest specificity please clarify what, if any of the components of the CONCEPCION were performed: Echocardiography, transesophageal, real time with image documentation (2D) (with or without M-mode recording) including probe placement, image acquisition and report Doppler echocardiography, pulsed wave and/or continuous wave with spectral display Doppler echocardiography color flow velocity mapping. Thank you for your kind consideration. CONCEPCION was performed using doppler echo, pulsed wave doppler and continuous wave doppler. IVON
== END ==
LOC: CATHCVL 07:46
PROVIDERS: ATTEND Internal Medicine
DX: I08.3 Combined rheumatic disorders of mitral, aortic and tricuspid valves (principal); I10 Essential (primary) hypertension; E11.9 Type 2 diabetes mellitus without complications; E78.5 Hyperlipidemia, unspecified; Z72.0 Tobacco use; Z88.2 Allergy status to sulfonamides; I25.10 Atherosclerotic heart disease of native coronary artery without angina pectoris; I11.0 Hypertensive heart disease with heart failure; I50.30 Unspecified diastolic (congestive) heart failure; Z95.1 Presence of aortocoronary bypass graft; I71.9 Aortic aneurysm of unspecified site, without rupture; I48.21 Permanent atrial fibrillation; Z79.82 Long term (current) use of aspirin; Z79.899 Other long term (current) drug therapy
CPT/HCPCS: 93312; 93320; 93325; J2250; J3010

== ENCOUNTER 2020-12-11 10:59 | Emergency (ER) | payer MEDICARE, OTHER ==
[2020-12-11 11:06] VITALS: TEMP 97.4
--- NOTE | 2020-12-11 11:36 | ED ---
General Adult HPI - General Chief complaint: Dizziness Stated complaint: Dizziness/Nausea Time Seen by Provider: 12/11/20 11:05 Source: patient, RN notes reviewed, old records reviewed Mode of arrival: ambulatory Limitations: no limitations - History of Present Illness Initial comments: This is a 80-year-old female presents emergency Department stating that she was at her niece's house and she was sitting in a chair and all of a sudden felt very dizzy and patient states she also is nauseated but did not vomit. Patient states she was off balance a little but when she walked. Patient states she did go to the past have bowel movement and she continued to have the symptoms. Patient states after that he'll tingling in her fingers little tingling in her feet bilaterally. Patient denies any chest pain palpitations difficulty breathing shortness of breath. Patient denies headache patient denies numbness weakness. Patient did not feel like she was going to pass out. Patient denies abdominal pain patient denies vomiting or diarrhea. Patient has a history of bypass surgery atrial fibrillation and high blood pressure high cholesterol - Related Data Home Medications Medication Instructions Recorded Confirmed Atorvastatin [Lipitor] 40 mg PO HS 05/23/14 12/11/20 Aspirin EC [Ecotrin Low Dose] 81 mg PO Q48H 09/19/17 12/11/20 Rivaroxaban [Xarelto] 20 mg PO HS 09/19/17 12/11/20 carvediloL [Coreg] 6.25 mg PO BID 01/13/20 12/11/20 Calcium Carbonate [Calcium] 600 mg PO DAILY 12/11/20 12/11/20 Cholecalciferol [Vitamin D3 (25 25 mcg PO DAILY 12/11/20 12/11/20 Mcg = 1000 Iu)] Estradiol Cream [Estrace Cream 1 gm VAGINAL Q7DAYS 12/11/20 12/11/20 0.01%] Pnv,Calcium 72/Iron/Folic Acid 1 tab PO DAILY 12/11/20 12/11/20 [ Plus Tablet] Triamterene/Hydrochlorothiazid 1 tab PO DAILY 12/11/20 12/11/20 [Triamterene-Hctz 37.5-25 mg Tb] lisinopriL [Zestril] 20 mg PO BID 12/11/20 12/11/20 Allergies Allergy/AdvReac Type Severity Reaction Status Date / Time warfarin [From Coumadin] Allergy coumadin Verified 12/11/20 12:07 toxicity albuterol AdvReac Rapid Verified 12/11/20 12:07 Heart Rate codeine AdvReac Rapid Verified 12/11/20 12:07 Heart Rate sulfamethoxazole AdvReac Nausea & Verified 12/11/20 12:07 [From Bactrim] Vomiting trimethoprim [From Bactrim] AdvReac Nausea & Verified 12/11/20 12:07 Vomiting Review of Systems ROS Statement: Those systems with pertinent positive or pertinent negative responses have been documented in the HPI. ROS Other: All systems not noted in ROS Statement are negative. Past Medical History Past Medical History: Atrial Fibrillation, Coronary Artery Disease (CAD), Chest Pain / Angina, Heart Failure, Diabetes Mellitus, Hyperlipidemia, Hypertension, Pneumonia Additional Past Medical History / Comment(s): Afib/flutter, blood loss anemia/syncope after teeth extraction/hemorrhage with blood transfusion, murmur, hypomagnesemia, frequent UTIs/bladder tipped and does not empty entirely, past r foot fracture with surgery.diet controlled diabetic History of Any Multi-Drug Resistant Organisms: MRSA Date of last positivie culture/infection: 2012 MDRO Source:: wound left abdomen Past Surgical History: Adenoidectomy, Appendectomy, Cholecystectomy, Coronary Bypass/CABG, Heart Catheterization, Orthopedic Surgery, Tonsillectomy Additional Past Surgical History / Comment(s): Cabg 4 vessel 2005? in [facility], right shoulder rotator cuff repair, right knee arthroscopy, R metatarsal surgery after fx, colonoscopy-normal Past Anesthesia/Blood Transfusion Reactions: Postoperative Nausea & Vomiting (PONV) Additional Past Anesthesia/Blood Transfusion Reaction / Comment(s): Pt has received blood in past without reaction. Past Psychological History: No Psychological Hx Reported Smoking Status: Former smoker Past Alcohol Use History: Occasional Past Drug Use History: None Reported - Past Family History Father Family Medical History: Congestive Heart Failure (CHF), CVA/TIA, Myocardial Infarction ([place]) Additional Family Medical History / Comment(s): Father at age 61 yrs. Mother Family Medical History: Congestive Heart Failure (CHF) Additional Family Medical History / Comment(s): Mother at age 83yrs. General Exam - General Exam Comments Initial Comments: GENERAL: Patient is well-developed and well-nourished. Patient is nontoxic and well- hydrated and is in no acute distress. ENT: Neck is soft and supple. No significant lymphadenopathy is noted. Oropharynx is clear. Moist mucous membranes. Neck has full range of motion without eliciting any pain. EYES: The sclera were anicteric and conjunctiva were pink and moist. Extraocular movements were intact and pupils were equal round and reactive to light. Eyelids were unremarkable. PULMONARY: Unlabored respirations. Good breath sounds bilaterally. No audible rales rhonchi or wheezing was noted. CARDIOVASCULAR: There is a regular rate and rhythm without any murmurs gallops or rubs. ABDOMEN: Soft and nontender with normal bowel sounds. SKIN: Skin is clear with no lesions or rashes and otherwise unremarkable. NEUROLOGIC: Patient is alert and oriented x3. Cranial nerves II through XII are grossly intact. Motor and sensory are also intact. Normal speech, volume and content. Symmetrical smile. MUSCULOSKELETAL: Normal extremities with adequate strength and full range of motion. LYMPHATICS: No significant lymphadenopathy is noted PSYCHIATRIC: Normal psychiatric evaluation. Limitations: no limitations Course Vital Signs 12/11/20 12/11/20 12/11/20 11:03 11:30 12:00 Temperature 97.4 F L Pulse Rate 55 L 57 L Respiratory 20 18 Rate Blood Pressure 145/68 149/67 160/74 O2 Sat by Pulse 98 Oximetry 12/11/20 12/11/20 12/11/20 12:30 13:00 13:30 Temperature Pulse Rate 61 59 L 56 L Respiratory 18 18 16 Rate Blood Pressure 142/65 147/75 133/61 O2 Sat by Pulse Oximetry 12/11/20 14:00 Temperature Pulse Rate 67 Respiratory 16 Rate Blood Pressure 145/88 O2 Sat by Pulse 98 Oximetry Medical Decision Making - Medical Decision Making EKG shows atrial fibrillation at 61 bpm QRS is 88 QT interval 412 QTC is 414. P atient's EKG shows no ST segment elevation or depression. Patient states that she's been having hematuria ever since she had her bladder suspension 2 months ago I will back and reevaluated the patient she had no symptoms at this time was able to ambulate around the emergency department without problem. - Lab Data Result diagrams: 12/11/20 12:16 12/11/20 12:16 Lab Results 12/11/20 12/11/20 12/11/20 Range/Units 12:16 12:16 12:16 WBC 10.3 (3.8-10.6) k/uL RBC 4.82 (3.80-5.40) m/uL Hgb 14.7 (11.4-16.0) gm/dL Hct 44.9 (34.0-46.0) % MCV 93.2 (80.0-100.0) fL MCH 30.6 (25.0-35.0) pg MCHC 32.8 (31.0-37.0) g/dL RDW 16.2 H (11.5-15.5) % Plt Count 195 (150-450) k/uL MPV 10.8 Neutrophils % 67 % Lymphocytes % 23 % Monocytes % 5 % Eosinophils % 2 % Basophils % 1 % Neutrophils # 6.9 (1.3-7.7) k/uL Lymphocytes # 2.4 (1.0-4.8) k/uL Monocytes # 0.6 (0-1.0) k/uL Eosinophils # 0.2 (0-0.7) k/uL Basophils # 0.1 (0-0.2) k/uL Hypochromasia Slight Anisocytosis Slight PT 15.1 H (9.0-12.0) sec INR 1.5 H (<1.2) APTT 40.1 H (22.0-30.0) sec Sodium 136 L (137-145) mmol/L Potassium 4.7 (3.5-5.1) mmol/L Chloride 102 (98-107) mmol/L Carbon Dioxide 26 (22-30) mmol/L Anion Gap 8 mmol/L BUN 17 (7-17) mg/dL Creatinine 0.78 (0.52-1.04) mg/dL Est GFR (CKD-EPI)AfAm 85 (>60 ml/min/1.73 sqM) Est GFR (CKD-EPI)NonAf 73 (>60 ml/min/1.73 sqM) Glucose 96 (74-99) mg/dL Calcium 10.2 (8.4-10.2) mg/dL Magnesium 2.0 (1.6-2.3) mg/dL Total Bilirubin 1.3 (0.2-1.3) mg/dL AST 33 (14-36) U/L ALT 24 (4-34) U/L Alkaline Phosphatase 64 (38-126) U/L Troponin I (0.000-0.034) ng/mL Total Protein 7.1 (6.3-8.2) g/dL Albumin 4.3 (3.5-5.0) g/dL Urine Color Urine Appearance (Clear) Urine pH (5.0-8.0) Ur Specific [place] (1.001-1.035) Urine Protein (Negative) Urine Glucose (UA) (Negative) Urine Ketones (Negative) Urine Blood (Negative) Urine Nitrite (Negative) Urine Bilirubin (Negative) Urine Urobilinogen (<2.0) mg/dL Ur Leukocyte Esterase (Negative) Urine RBC (0-5) /hpf Urine WBC (0-5) /hpf Ur Squamous Epith Cells (0-4) /hpf Urine Bacteria (None) /hpf Hyaline Casts (0-2) /lpf 12/11/20 12/11/20 Range/Units 12:16 12:16 WBC (3.8-10.6) k/uL RBC (3.80-5.40) m/uL Hgb (11.4-16.0) gm/dL Hct (34.0-46.0) % MCV (80.0-100.0) fL MCH (25.0-35.0) pg MCHC (31.0-37.0) g/dL RDW (11.5-15.5) % Plt Count (150-450) k/uL MPV Neutrophils % % Lymphocytes % % Monocytes % % Eosinophils % % Basophils % % Neutrophils # (1.3-7.7) k/uL Lymphocytes # (1.0-4.8) k/uL Monocytes # (0-1.0) k/uL Eosinophils # (0-0.7) k/uL Basophils # (0-0.2) k/uL Hypochromasia Anisocytosis PT (9.0-12.0) sec INR (<1.2) APTT (22.0-30.0) sec Sodium (137-145) mmol/L Potassium (3.5-5.1) mmol/L Chloride (98-107) mmol/L Carbon Dioxide (22-30) mmol/L Anion Gap mmol/L BUN (7-17) mg/dL Creatinine (0.52-1.04) mg/dL Est GFR (CKD-EPI)AfAm (>60 ml/min/1.73 sqM) Est GFR (CKD-EPI)NonAf (>60 ml/min/1.73 sqM) Glucose (74-99) mg/dL Calcium (8.4-10.2) mg/dL Magnesium (1.6-2.3) mg/dL Total Bilirubin (0.2-1.3) mg/dL AST (14-36) U/L ALT (4-34) U/L Alkaline Phosphatase (38-126) U/L Troponin I <0.012 (0.000-0.034) ng/mL Total Protein (6.3-8.2) g/dL Albumin (3.5-5.0) g/dL Urine Color Yellow Urine Appearance Clear (Clear) Urine pH 7.0 (5.0-8.0) Ur Specific [place] 1.007 (1.001-1.035) Urine Protein Negative (Negative) Urine Glucose (UA) Negative (Negative) Urine Ketones Negative (Negative) Urine Blood Moderate H (Negative) Urine Nitrite Negative (Negative) Urine Bilirubin Negative (Negative) Urine Urobilinogen <2.0 (<2.0) mg/dL Ur Leukocyte Esterase Large H (Negative) Urine RBC 139 H (0-5) /hpf Urine WBC 35 H (0-5) /hpf Ur Squamous Epith Cells <1 (0-4) /hpf Urine Bacteria Rare H (None) /hpf Hyaline Casts 1 (0-2) /lpf Disposition Clinical Impression: Dizziness Disposition: HOME SELF-CARE Condition: Good Instructions (If sedation given, give patient instructions): Dizziness (ED) Is patient prescribed a controlled substance at d/c from ED?: No Referrals: Verito Khan MD [Primary Care Provider] - 1-2 days Time of Disposition: 14:02
--- NOTE | 2020-12-11 12:18 | XR ---
EXAMINATION TYPE: XR chest 2V DATE OF EXAM: 12/11/2020 COMPARISON: Chest x-ray 09/19/2017 HISTORY: Chest pain TECHNIQUE: Frontal and lateral views of the chest are obtained. FINDINGS: There is no focal air space opacity, pleural effusion, or pneumothorax seen. The cardiac silhouette size is stable. Patient is post median sternotomy. Aorta is dense. There is thoracic spon dylosis. Elevation of right hemidiaphragm is stable. Arthropathy noted at the acromioclavicular joint s. The osseous structures are intact. IMPRESSION: No acute cardiopulmonary process.
--- NOTE | 2020-12-11 12:21 | CT ---
EXAMINATION TYPE: CT brain wo con DATE OF EXAM: 12/11/2020 COMPARISON: CT 03/02/2015 HISTORY: Dizziness, near syncopal CT DLP: 1103 mGycm Automated exposure control for dose reduction was used. Helical imaging through the brain. FINDINGS: There is cortical atrophy is noted on prior exam. Bony excrescence at the inner table along the regio n of the sylvian fissure is again seen. Periventricular white matter shows patchy low attenuation sim ilar to prior exam. There is no hemorrhage or hydrocephalus. Cerebral vascular calcifications are pre sent. Suspect a partially empty sella. IMPRESSION: NO ACUTE ABNORMALITY. AGE-RELATED CHANGES OF ATROPHY AND CHRONIC SMALL VESSEL ISCHEMIA.
[2020-12-11 12:35] LABS: Anisocytosis Slight; Basophils # (A) 0.1 k/uL (0-0.2); Basophils % (A) 1 %; Eosinophils # (A) 0.2 k/uL (0-0.7); Eosinophils % (A) 2 %; HCT 44.9 % (34.0-46.0); HGB 14.7 gm/dL (11.4-16.0); Hypochromasia Slight; Lymphocytes # (A) 2.4 k/uL (1.0-4.8); Lymphocytes % (A) 23 %; MCH 30.6 pg (25.0-35.0); MCHC 32.8 g/dL (31.0-37.0); MCV 93.2 fL (80.0-100.0); Mean Platelet Volume 10.8; Monocytes # (A) 0.6 k/uL (0-1.0); Monocytes % (A) 5 %; Neutrophils # (A) 6.9 k/uL (1.3-7.7); Neutrophils % (A) 67 %; Platelet Count 195 k/uL (150-450); RBC 4.82 m/uL (3.80-5.40); RDW 16.2 % (11.5-15.5); WBC 10.3 k/uL (3.8-10.6)
[2020-12-11 12:45] LABS: Albumin 4.3 g/dL (3.5-5.0); Calcium 10.2 mg/dL (8.4-10.2); Potassium 4.7 mmol/L (3.5-5.1); Total Bilirubin 1.3 mg/dL (0.2-1.3); Total Protein 7.1 g/dL (6.3-8.2)
[2020-12-11 12:47] LABS: INR 1.5 (<1.2); Partial Thromboplastin Time 40.1 sec (22.0-30.0); Prothrombin Time 15.1 sec (9.0-12.0)
[2020-12-11 12:53] LABS: Appearance,Urine Clear (Clear); Bacteria,Urine Rare /hpf; Bilirubin,Urine Negative (Negative); Blood,Urine Moderate (Negative); Color,Urine Yellow; Glucose,Urine (UA) Negative (Negative); Hyaline Casts,Urine 1 /lpf (0-2); Ketones,Urine Negative (Negative); Leukocyte Esterase,Urine Large (Negative); Nitrite,Urine Negative (Negative); Protein,Urine Negative (Negative); RBC,Urine 139 /hpf (0-5); Specific Gravity,Urine 1.007 (1.001-1.035); Squamous Epithelial Cell,Urine <1 /hpf (0-4); Urobilinogen,Urine <2.0 mg/dL (<2.0); WBC,Urine 35 /hpf (0-5)
[2020-12-11 15:00] VITALS: BP 131/66; PULSE 59; RESP 18
== END 2020-12-11 15:06 | disposition home or self-care (01) ==
LOC: EC 10:59
DX: R42 Dizziness and giddiness (principal); R11.0 Nausea; I11.0 Hypertensive heart disease with heart failure; I50.9 Heart failure, unspecified; I48.91 Unspecified atrial fibrillation; E11.9 Type 2 diabetes mellitus without complications; E78.5 Hyperlipidemia, unspecified; I25.10 Atherosclerotic heart disease of native coronary artery without angina pectoris; Z87.891 Personal history of nicotine dependence; Z79.82 Long term (current) use of aspirin; Z79.01 Long term (current) use of anticoagulants
CPT/HCPCS: 36415; 70450; 71046; 80053; 81001; 83735; 84484; 85025; 85610; 85730; 87086; 93005; 99285

== ENCOUNTER 2024-02-05 21:54 | Observation (INO) | payer MEDICARE, OTHER ==
--- NOTE | 2024-02-05 22:34 | ED ---
Chest Pain HPI - General Chief Complaint: Chest Pain Stated Complaint: Chest Pressure,Sob Time Seen by Provider: 02/05/24 22:31 Source: patient, RN notes reviewed Mode of arrival: ambulatory Limitations: no limitations - History of Present Illness Initial Comments: 83-year-old female presented to the ER with a chief complaint of chest discomfort. Patient reports a CABG in 2006. She states she also has a history of atrial fibrillation and taking carvedilol and Xarelto. Patient states yesterday she started to experience a heaviness/elephant sitting on her chest sensation. No radiation of pain. She does report shortness of breath during these episodes. Denies any dizziness, lightheadedness or vomiting. She does report nausea. Patient states these episodes are intermittent with no known triggers. Denies any current chest discomfort. Patient states she recently underwent a fracture of her right fibula. No other complaints. - Related Data Home Medications Medication Instructions Recorded Confirmed Atorvastatin [Lipitor] 40 mg PO HS 05/23/14 12/11/20 Aspirin EC [Ecotrin Low Dose] 81 mg PO Q48H 09/19/17 12/11/20 Rivaroxaban [Xarelto] 20 mg PO HS 09/19/17 12/11/20 carvediloL [Coreg] 6.25 mg PO BID 01/13/20 12/11/20 Calcium Carbonate [Calcium] 600 mg PO DAILY 12/11/20 12/11/20 Cholecalciferol [Vitamin D3 (25 25 mcg PO DAILY 12/11/20 12/11/20 Mcg = 1000 Iu)] Estradiol Cream [Estrace Cream 1 gm VAGINAL Q7DAYS 12/11/20 12/11/20 0.01%] Vit No.180/Iron/Folic 1 tab PO DAILY 12/11/20 12/11/20 [ Plus Tablet] Triamterene/Hydrochlorothiazid 1 tab PO DAILY 12/11/20 12/11/20 [Triamterene-Hctz 37.5-25 mg Tb] lisinopriL [Zestril] 20 mg PO BID 12/11/20 12/11/20 Allergies Allergy/AdvReac Type Severity Reaction Status Date / Time warfarin [From Coumadin] Allergy coumadin Verified 12/11/20 12:07 toxicity albuterol AdvReac Rapid Verified 12/11/20 12:07 Heart Rate codeine AdvReac Rapid Verified 12/11/20 12:07 Heart Rate sulfamethoxazole AdvReac Nausea & Verified 12/11/20 12:07 [From Bactrim] Vomiting trimethoprim [From Bactrim] AdvReac Nausea & Verified 12/11/20 12:07 Vomiting Review of Systems ROS Statement: Those systems with pertinent positive or pertinent negative responses have been documented in the HPI. ROS Other: All systems not noted in ROS Statement are negative. EKG Findings - EKG Comments: EKG Findings:: EKG taken at 22: 14 showing atrial fibrillation. Incomplete right bundle branch block. No acute ST segment or T wave abnormalities. Ventricular rate 75, QRS duration 91, QT/QTc 381/409. Past Medical History Past Medical History: Atrial Fibrillation, Coronary Artery Disease (CAD), Chest Pain / Angina, Heart Failure, Diabetes Mellitus, Hyperlipidemia, Hypertension, Pneumonia Additional Past Medical History / Comment(s): Afib/flutter, blood loss anem ia/syncope after teeth extraction/hemorrhage with blood transfusion, murmur, hypomagnesemia, frequent UTIs/bladder tipped and does not empty entirely, past r foot fracture with surgery.diet controlled diabetic History of Any Multi-Drug Resistant Organisms: MRSA Date of last positivie culture/infection: 2012 MDRO Source:: wound left abdomen Past Surgical History: Adenoidectomy, Appendectomy, Cholecystectomy, Coronary Bypass/CABG, Heart Catheterization, Orthopedic Surgery, Tonsillectomy Additional Past Surgical History / Comment(s): Cabg 4 vessel 2005? in [facility], right shoulder rotator cuff repair, right knee arthroscopy, R metatarsal surgery after fx, colonoscopy- normal Past Anesthesia/Blood Transfusion Reactions: Postoperative Nausea & Vomiting (PONV) Additional Past Anesthesia/Blood Transfusion Reaction / Comment(s): Pt has received blood in past without reaction. Past Psychological History: No Psychological Hx Reported Smoking Status: Former smoker Past Alcohol Use History: Occasional Past Drug Use History: None Reported - Past Family History Father Family Medical History: Congestive Heart Failure (CHF), CVA/TIA, Myocardial Infarction ([place]) Additional Family Medical History / Comment(s): Father at age 61 yrs. Mother Family Medical History: Congestive Heart Failure (CHF) Additional Family Medical History / Comment(s): Mother at age 83yrs. General Exam Limitations: no limitations General appearance: alert, in no apparent distress Respiratory exam: Present: normal lung sounds bilaterally. Absent: respiratory distress, wheezes, rales, rhonchi, stridor Cardiovascular Exam: Present: regular rate, irregular rhythm, normal heart sounds GI/Abdominal exam: Present: soft, normal bowel sounds. Absent: distended, tenderness, guarding, rebound, rigid Extremities exam: Present: normal inspection, full ROM, normal capillary refill. Absent: tenderness, pedal edema, joint swelling, calf tenderness Neurological exam: Present: alert, oriented X3, CN II-XII intact Skin exam: Present: warm, dry, intact, normal color. Absent: rash Course Vital Signs 02/05/24 02/05/24 22:06 22:53 Temperature 97.7 F Pulse Rate 82 71 Respiratory 20 Rate Blood Pressure 176/76 184/98 O2 Sat by Pulse 97 Oximetry - Reevaluation(s) Reevaluation #1: 02/05/24 23:48 HEART score 6. Case discussed with Dr. Jaquez for admission. He would not like patient started on antibiotics at this time. Chest Pain MDM - MDM Was pt. sent in by a medical professional or institution (, PA, MANAGER CLINICAL SERVICES, urgent care, hospital, or fdc...) When possible be specific @ -No Did you speak to anyone other than the patient for history (EMS, parent, family, police, friend...)? What history was obtained from this source @ -No Did you review nursing and triage notes (agree or disagree)? Why? @ -I reviewed and agree with nursing and triage notes Were old charts reviewed (outside hosp., previous admission, EMS record, old EKG, old radiological studies, urgent care reports/EKG's, fdc records)? Report findings @ -No old charts were reviewed Differential Diagnosis (chest pain, altered mental status, abdominal pain women, abdominal pain men, vaginal bleeding, weakness, fever, dyspnea, syncope, headache, dizziness, GI bleed, back pain, seizure, CVA, palpatations, mental health, musculoskeletal)? @ -Differential Chest Pain:Stable Angina, Unstable Angina, STEMI, NSTEMI Aortic Dissection, Pneumothorax, Musculoskeletal, Esophageal Spasm GERD, Cholecystitis, Pancreatitis, Zoster, this is not meant to be an all-inclusive list. EKG interpreted by me (3pts min.). @ -As above X-rays interpreted by me (1pt min.). @ -CXR interpreted by me concerning of a right upper lobe opacity. CT interpreted by me (1pt min.). @ -None done U/S interpreted by me (1pt. min.). @ -None done What testing was considered but not performed or refused? (CT, X-rays, U/S, labs)? Why? @ -None What meds were considered but not given or refused? Why? @ -Rocephin for right upper lobe opacity in CXR, admitting physician would not like patient started on antibiotics at this time. Did you discuss the management of the patient with other professionals (professionals i.e. , PA, MANAGER CLINICAL SERVICES, lab, RT, psych nurse, social work supervisor, machine room operator, teacher, airfield engineer officer, pillowcase cutter)? Give summary @ -Yes, case discussed with Dr. Jaquez for admission. He would not like patient started on antibiotics at this time. Was smoking cessation discussed for >3mins.? @ -No Was critical care preformed (if so, how long)? @ -No Were there social determinants of health that impacted care today? How? (Homelessness, low income, unemployed, alcoholism, drug addiction, transportation, low edu. Level, literacy, decrease access to med. care, group home, rehab)? @ -No Was there de-escalation of care discussed even if they declined (Discuss DNR or withdrawal of care, Hospice)? DNR status @ -No What co-morbidities impacted this encounter? (DM, HTN, Smoking, COPD, CAD, Cancer, CVA, ARF, Chemo, Hep., AIDS, mental health diagnosis, sleep apnea, morbid obesity)? @ -Diabetes mellitus, atrial fibrillation, CHF, hypertension, CABG 2006 Was patient admitted / discharged? Hospital course, mention meds given and route, prescriptions, significant lab abnormalities, going to OR and other pertinent info. @ -Admitted. 83-year-old female presented to ER with a chief complaint of chest discomfort. History and physical exam completed. Vitals upon arrival remarkable for temperature of 97.7, heart rate 82, respiratory rate 20, blood pressure 176/76, oxygen saturation 97% on room air. Patient in no signs of acute distress and nontoxic-appearing. Exam benign. Laboratory studies obtained unremarkable. Troponin less than 0.012. EKG showing atrial fibrillation with no acute evidence of infarct. Chest x-ray concerning of a right upper lobe opacity. Admission considered due to patient's extensive cardiac history for cardiac rule out. Admission was discussed with Dr. Jaquez. He advised against antibiotics at this time. Heart score 6. Patient agreeable for admission. Patient admitted in stable condition. Case discussed with ED attending, Dr. Bennett. Undiagnosed new problem with uncertain prognosis? @ -No Drug Therapy requiring intensive monitoring for toxicity (Heparin, Nitro, Insulin, Cardizem)? @ -No Were any procedures done? @ -No Diagnosis/symptom? @ -Chest pain Acute, or Chronic, or Acute on Chronic? @ -Acute Uncomplicated (without systemic symptoms) or Complicated (systemic symptoms)? @ -Complicated Side effects of treatment? @ -No Exacerbation, Progression, or Severe Exacerbation? @ -No Poses a threat to life or bodily function? How? (Chest pain, [place], [place], pneumonia, PE, COPD, DKA, ARF, appy, cholecystitis, CVA, Diverticulitis, Homicidal, Suicidal, threat to staff... and all critical care pts) @ -Yes, chest pain can be ACS which can lead to lethal cardiac arrhythmias. Disposition Clinical Impression: Atrial fibrillation, Chest pain Disposition: ADMITTED IP TO THIS HOSP Condition: Stable Referrals: Verito Khan MD [Primary Care Provider] - 1-2 days Time of Disposition: 23:49
[2024-02-05] MEDS: SODIUM CHLORIDE 0.9% 500 ML 500 ML IV STA (22:57)
[2024-02-05 23:05] LABS: Basophils % (A) 0 %; Eosinophils # (A) 0.3 k/uL (0-0.7); Eosinophils % (A) 3 %; HCT 40.7 % (34.0-46.0); HGB 13.2 gm/dL (11.4-16.0); Lymphocytes # (A) 1.9 k/uL (1.0-4.8); Lymphocytes % (A) 18 %; MCH 30.7 pg (25.0-35.0); MCHC 32.4 g/dL (31.0-37.0); MCV 94.8 fL (80.0-100.0); Mean Platelet Volume 10.7; Monocytes # (A) 0.6 k/uL (0-1.0); Monocytes % (A) 5 %; Neutrophils # (A) 7.5 k/uL (1.3-7.7); Neutrophils % (A) 72 %; Platelet Count 181 k/uL (150-450); RDW 15.1 % (11.5-15.5); WBC 10.4 k/uL (3.8-10.6)
[2024-02-05 23:14] LABS: ALT 19 U/L (4-34); AST 25 U/L (14-36); African American GFR (CKD) >90 (>60 ml/min/1.73 sqM); Albumin 4.1 g/dL (3.5-5.0); Alkaline Phosphatase 65 U/L (38-126); Anion Gap 5 mmol/L; Blood Urea Nitrogen 15 mg/dL (7-17); Calcium 9.7 mg/dL (8.4-10.2); Carbon Dioxide 27 mmol/L (22-30); Chloride 107 mmol/L (98-107); Glucose 133 mg/dL (74-99); Magnesium 1.7 mg/dL (1.6-2.3); Non-African American GFR(CKD) 84 (>60 ml/min/1.73 sqM); Potassium 3.6 mmol/L (3.5-5.1); Sodium 139 mmol/L (137-145); Total Bilirubin 1.1 mg/dL (0.2-1.3); Total Protein 6.6 g/dL (6.3-8.2)
[2024-02-05 23:41] LABS: INR 1.3 (<1.2); Partial Thromboplastin Time 37.6 sec (22.0-30.0); Prothrombin Time 13.7 sec (10.0-12.5)
[2024-02-05] MEDS ORDERED: ONDANSETRON 4 MG/2 ML VIAL IVP PRN (23:53)
[2024-02-05] MEDS ORDERED: ACETAMINOPHEN TAB 325 MG TAB PO PRN (23:53)
[2024-02-05] MEDS ORDERED: NALOXONE 0.4 MG/ML 1 ML VIAL IV PRN (23:53)
[2024-02-06] MEDS: carvediloL 6.25 MG TAB PO SCH (00:23)
[2024-02-06] MEDS: ATORVASTATIN 40 MG TAB PO SCH (00:24)
[2024-02-06] MEDS: lisinopriL 20 MG TAB PO SCH ×2 (00:25→20:00)
[2024-02-06] MEDS: RIVAROXABAN 20 MG TAB PO SCH (00:25)
--- NOTE | 2024-02-06 01:11 | XR ---
EXAM: XR Chest, 2 Views CLINICAL HISTORY: ITS.REASON XR Reason: Chest Pain TECHNIQUE: Frontal and lateral views of the chest. COMPARISON: Chest x-ray 12/11/20. FINDINGS: Lungs: Mild vascular prominence, nonspecific, cannot rule out CHF. Pleural-parenchymal scarring bilateral costophrenic angles, essentially stable. Lungs are otherwise clear. No consolidation. Pleural space: No pneumothorax. Heart: Moderate cardiomegaly. Mediastinum: Ectatic aorta with atherosclerosis. Bones/Soft Tissues: No acute abnormality. IMPRESSION: 1. Probable chronic scarring bilateral costophrenic angles. 2. Cardiomegaly with vascular prominence, mildly progressed correlate clinically to rule out CHF.
[2024-02-06] MEDS: lisinopriL 10 MG TAB PO SCH (08:05)
[2024-02-06] MEDS ORDERED: REGADENOSON 0.4 MG/5 ML SYRINGE IV PRN (09:30)
[2024-02-06] MEDS ORDERED: CAFFEINE CITRATE 60 MG/3 ML VIAL IV PRN (09:30)
[2024-02-06] MEDS ORDERED: AMINOPHYLLINE 500 MG/20 ML VIAL IV PRN (09:30)
--- NOTE | 2024-02-06 11:50 | P.CRDCN ---
History of Present Illness History of present illness: HISTORY OF PRESENT ILLNESS: This is a 83-year-old female with a past medical history significant for coronary artery disease with previous CABG, persistent atrial fibrillation, valvular heart disease, sick sinus syndrome, hypertension, and hyperlipidemia. Patient follows in the office with Dr. Ramos. We have been asked to see the patient in consultation for chest pain. Patient examined at the bedside in the emergency room. Patient reports having chest pain that began yesterday. She states the pain was in the middle of her chest and did not radiate anywhere. She did report having associated shortness of breath and nausea. At the time of examination, the patient denies any chest pain or pressure. Bedside telemetry reveals atrial fibrillation with controlled ventricular rate. Blood pressure elevated this morning with a reading of 169/79. DIAGNOSTICS: - EKG reveals atrial fibrillation with controlled ventricular rate. No signs of acute ischemia. - Chest xray probable chronic scarring bilateral costophrenic angles. Cardiomegaly with vascular prominence. - Laboratory data: WBC 10.4. Hemoglobin 13.2. Platelet count 181. Sodium 139. Potassium 3.6. BUN 15. Creatinine 0.64. Magnesium 1.7. Troponin negative x 2. - Current home cardiac medications include aspirin 81 mg daily, lisinopril 10 mg twice a day, atorvastatin 40 mg daily, Xarelto 20 mg at night, carvedilol 6.25 mg twice a day - Most recent echocardiogram obtained in September 2022 revealed ejection fraction 55%, mild concentric LVH, moderate aortic regurgitation, moderate mitral regurgitation, severe tricuspid regurgitation. - Patient underwent Lexiscan stress test in November 2021 revealing probably normal myocardial perfusion function with fixed anterior wall defect secondary to soft tissue attenuation REVIEW OF SYSTEMS: At the time of my exam: CONSTITUTIONAL: Denies fever or chills. HEENT: Denies blurred vision, vision changes, or eye pain. Denies hemoptysis CARDIOVASCULAR: Denies chest pain. Denies orthopnea. Denies PND. Denies palpitations RESPIRATORY: Denies shortness of breath. GASTROINTESTINAL: Denies abdominal pain. Denies nausea or vomiting. HEMATOLOGIC: Denies bleeding disorders. GENITOURINARY: Denies any blood in urine. SKIN: Denies pruitis. Denies rash. PHYSICAL EXAM: VITAL SIGNS: Reviewed. GENERAL: Well-developed in no acute distress. HEENT: Head is normocephalic. Pupils are equal, round. Sclerae anicteric. Mucous membranes of the mouth are moist. Neck supple. No JVD or thyromegaly LUNGS: Respirations even and unlabored. Lungs essentially clear to auscultation bilaterally. HEART: Irregular rate and rhythm. S1 and S2 heard. Systolic murmur noted ABDOMEN: Soft. Nondistended. Nontender. EXTREMITIES: Normal range of motion. No clubbing or cyanosis. Peripheral pulses intact. No lower extremity edema NEUROLOGIC: Awake and alert. Oriented x 3. ASSESSMENT: Chest pain, troponin negative x 2 Coronary artery disease with previous CABG Hypertension, uncontrolled on admission Persistent atrial fibrillation with controlled ventricular rate Valvular heart disease including moderate AI, moderate MR, and severe TR History of sick sinus syndrome Hyperlipidemia PLAN: Obtain 2D echo to assess cardiac structure and function Obtain additional troponin Resume home cardiac medications Increase lisinopril to 20 mg twice a day for optimal blood pressure control N.p.o. at midnight Patient to undergo Lexiscan stress test tomorrow Further recommendations pending patient course Nurse practitioner note has been reviewed by physician. Signing provider agrees with the documented findings, assessment, and plan of care documented by EXT JS DEVELOPER as a scribe. Past Medical History Past Medical History: Atrial Fibrillation, Coronary Artery Disease (CAD), Chest Pain / Angina, Heart Failure, Diabetes Mellitus, Hyperlipidemia, Hypertension, Pneumonia Additional Past Medical History / Comment(s): Afib/flutter, blood loss anemia/syncope after teeth extraction/hemorrhage with blood transfusion, murmur, hypomagnesemia, frequent UTIs/bladder tipped and does not empty entirely, past r foot fracture with surgery.diet controlled diabetic History of Any Multi-Drug Resistant Organisms: MRSA Date of last positivie culture/infection: 2012 MDRO Source:: wound left abdomen Past Surgical History: Adenoidectomy, Appendectomy, Cholecystectomy, Coronary Bypass/CABG, Heart Catheterization, Orthopedic Surgery, Tonsillectomy Additional Past Surgical History / Comment(s): Cabg 4 vessel 2005? in [facility], right shoulder rotator cuff repair, right knee arthroscopy, R metatarsal surgery after fx, colonoscopy- normal Past Anesthesia/Blood Transfusion Reactions: Postoperative Nausea & Vomiting (PONV) Additional Past Anesthesia/Blood Transfusion Reaction / Comment(s): Pt has received blood in past without reaction. Past Psychological History: No Psychological Hx Reported Smoking Status: Former smoker Past Alcohol Use History: Occasional Past Drug Use History: None Reported - Past Family History Father Family Medical History: Congestive Heart Failure (CHF), CVA/TIA, Myocardial Infarction ([place]) Additional Family Medical History / Comment(s): Father at age 61 yrs. Mother Family Medical History: Congestive Heart Failure (CHF) Additional Family Medical History / Comment(s): Mother at age 83yrs. Medications and Allergies Home Medications Medication Instructions Recorded Confirmed Type Atorvastatin [Lipitor] 40 mg PO DAILY 05/23/14 02/06/24 History Aspirin EC [Ecotrin Low Dose] 81 mg PO HS 09/19/17 02/06/24 History Rivaroxaban [Xarelto] 20 mg PO HS 09/19/17 02/06/24 History carvediloL [Coreg] 6.25 mg PO BID 01/13/20 02/06/24 History Calcium Carbonate [Calcium] 600 mg PO HS 12/11/20 02/06/24 History Cholecalciferol [Vitamin D3 (25 25 mcg PO HS 12/11/20 02/06/24 History Mcg = 1000 Iu)] Vit No.180/Iron/Folic 1 tab PO HS 12/11/20 02/06/24 History [ Plus Tablet] lisinopriL [Zestril] 10 mg PO BID 12/11/20 02/06/24 History Nitrofurantoin Macrocrystal 50 mg PO HS 02/06/24 02/06/24 History [Macrodantin] Numaqula 1 cap PO DAILY 02/06/24 02/06/24 History Numaqula 2 cap PO HS 02/06/24 02/06/24 History Allergies Allergy/AdvReac Type Severity Reaction Status Date / Time albuterol AdvReac Rapid Verified 02/06/24 07:26 Heart Rate codeine AdvReac Rapid Verified 02/06/24 07:26 Heart Rate sulfamethoxazole AdvReac Nausea & Verified 02/06/24 07:26 [From Bactrim] Vomiting trimethoprim [From Bactrim] AdvReac Nausea & Verified 02/06/24 07:26 Vomiting warfarin [From Coumadin] AdvReac coumadin Verified 02/06/24 07:26 toxicity Physical Exam Vitals: Vital Signs Temp Pulse Resp BP Pulse Ox 02/06/24 10:00 85 18 94 L 02/06/24 09:00 16 169/79 02/06/24 08:01 98.1 F 70 18 179/94 94 L 02/06/24 06:05 98.3 F 75 19 176/96 96 02/06/24 02:44 98.4 F 70 18 176/92 96 02/06/24 00:16 97.7 F 80 18 190/85 96 02/05/24 22:53 71 184/98 02/05/24 22:06 97.7 F 82 20 176/76 97 Intake and Output 02/05/24 02/06/24 02/06/24 22:59 06:59 14:59 Other: Weight 77.111 kg Results 02/05/24 22:57 02/05/24 22:57 Cardiac Enzymes 02/05/24 02/05/24 02/06/24 Range/Units 22:57 22:57 10:36 AST 25 (14-36) U/L Troponin I <0.012 <0.012 (0.000-0.034) ng/mL Coagulation 02/05/24 Range/Units 22:57 PT 13.7 H (10.0-12.5) sec APTT 37.6 H (22.0-30.0) sec CBC 02/05/24 Range/Units 22:57 WBC 10.4 (3.8-10.6) k/uL RBC 4.30 (3.80-5.40) m/uL Hgb 13.2 (11.4-16.0) gm/dL Hct 40.7 (34.0-46.0) % Plt Count 181 (150-450) k/uL Comprehensive Metabolic Panel 02/05/24 Range/Units 22:57 Sodium 139 (137-145) mmol/L Potassium 3.6 (3.5-5.1) mmol/L Chloride 107 (98-107) mmol/L Carbon Dioxide 27 (22-30) mmol/L BUN 15 (7-17) mg/dL Creatinine 0.64 (0.52-1.04) mg/dL Glucose 133 H (74-99) mg/dL Calcium 9.7 (8.4-10.2) mg/dL AST 25 (14-36) U/L ALT 19 (4-34) U/L Alkaline Phosphatase 65 (38-126) U/L Total Protein 6.6 (6.3-8.2) g/dL Albumin 4.1 (3.5-5.0) g/dL Current Medications Generic Name Dose Route Start Last Admin Trade Name Freq PRN Reason Stop Dose Admin Acetaminophen 650 mg 02/05/24 23:53 Acetaminophen Tab 325 Mg Tab PO Q6HR PRN Mild Pain or Fever > 100.5 Aminophylline 100 mg 02/06/24 09:30 Aminophylline 500 Mg/20 Ml Vial IV 02/06/24 13:30 ONCE PRN Patient Response Atorvastatin Calcium 40 mg 02/07/24 09:00 Atorvastatin 40 Mg Tab PO QAM SUZAN Caffeine Citrate 60 mg 02/06/24 09:30 Caffeine Citrate 60 Mg/3 Ml Vial IV 02/06/24 13:30 ONCE PRN Patient Response Carvedilol 6.25 mg 02/05/24 23:45 02/06/24 08:05 Carvedilol 6.25 Mg Tab PO 6.25 mg BID-W/MEALS SUZAN Administration Lisinopril 10 mg 02/06/24 09:00 02/06/24 08:05 Lisinopril 10 Mg Tab PO 10 mg BID SUZAN Administration Naloxone HCl 0.2 mg 02/05/24 23:53 Naloxone 0.4 Mg/Ml 1 Ml Vial IV Q2M PRN Opioid Reversal Ondansetron HCl 4 mg 02/05/24 23:53 Ondansetron 4 Mg/2 Ml Vial IVP Q8HR PRN Nausea And Vomiting Regadenoson 0.4 mg 02/06/24 09:30 Regadenoson 0.4 Mg/5 Ml Syringe IV 02/06/24 13:30 ONCE PRN Per Protocol Rivaroxaban 20 mg 02/05/24 23:45 02/06/24 00:25 Rivaroxaban 20 Mg Tab PO 20 mg HS SUZAN Administration Protocol Intake and Output 02/05/24 02/06/24 02/06/24 22:59 06:59 14:59 Other: Weight 77.111 kg 02/05/24 22:57 02/05/24 22:57
[2024-02-06] MEDS: lisinopriL 10 MG TAB PO STA (12:42)
--- NOTE | 2024-02-06 17:50 | P.HPIM ---
History of Present Illness H&P Date: 02/06/24 Chief Complaint: Heaviness chest This is a pleasant 83-year-old patient who follows with Dr. Verito Khan. Quality Assurance Qa Lab Technician Dr. Se Ramos. Medical history includes atrial fibrillation, CAD, diabetes hypertension hyperlipidemia A-fib flutter coronary bypass in [facility]. For 2 days patient been having a heaviness feeling in the chest. And some heart racing. Sometimes feeling elephant sitting on the chest. No dizziness no lightheadedness. No radiation. Finally decided to come in. Review of systems: GEN.: Tired EYES: None HEENT: None NECK: None RESPIRATORY: None CARDIOVASCULAR: As above GASTROINTESTINAL: None GENITOURINARY: None MUSCULOSKELETAL: None LYMPHATICS: None HEMATOLOGICAL: None PSYCHIATRY: None NEUROLOGICAL: None Social history: Patient smoked for about 7 years stopped with age of 27. Alcohol occasionally. Lives alone. Physical examination: VITAL SIGNS: Afebrile, 74, 16, 153/88, 96% room air GENERAL: BMI 28.2, sitting up in chair awake not in distress. EYES: Pupils equal. Conjunctiva senthil l. HEENT: External appearance of nose and ears normal, oral cavity grossly normal. NECK: JVD not raised; masses not palpable. HEART: First and second heart sounds are normal; no edema. LUNGS: Respiratory rate normal; clear to auscultation. ABDOMEN: Soft, nontender, liver spleen not palpable, no masses palpable. PSYCH: Alert and oriented x3; mood and affect senthil l. MUSCULOSKELETAL:No Clubbing/cyanosis;muscles-grossly intact. OA NEUROLOGICAL: Cranial nerves grossly intact; no facial asymmetry, power and sensation grossly intact. LYMPHATICS: No lymph nodes palpable in the axilla and neck INVESTIGATIONS, reviewed in the clinical context: February 05, 2024: White count 10.4 hemoglobin 13.2 platelets 181 sodium 139 potassium 3.6 creatinine 0.64 Troponin I less than 0.012 x 3 EKG tracing personally reviewed by me-atrial fibrillation, rate controlled Chest x-ray film personally reviewed by me-some cardiomegaly. Elevated right diaphragm Assessment plan: -Probable unstable angina in the patient with known CAD Troponin negative. Telemetry. Consult cardiology -CAD with prior bypass Coreg. Lipitor. Zestril. Aspirin. -Persistent atrial flutter fibrillation currently in sinus rhythm Coreg. Xarelto. -Essential hypertension Coreg. Zestril. -Primary osteoarthritis Tylenol as needed -Full code Care was discussed with patient. Cardiology consulted. 2D echo. Past Medical History Past Medical History: Atrial Fibrillation, Coronary Artery Disease (CAD), Chest Pain / Angina, Heart Failure, Diabetes Mellitus, Hyperlipidemia, Hypertension, Pneumonia Additional Past Medical History / Comment(s): Afib/flutter, blood loss anemia/syncope after teeth extraction/hemorrhage with blood transfusion, murmur, hypomagnesemia, frequent UTIs/bladder tipped and does not empty entirely, past r foot fracture with surgery.diet controlled diabetic History of Any Multi-Drug Resistant Organisms: MRSA Date of last positivie culture/infection: 2012 MDRO Source:: wound left abdomen Past Surgical History: Adenoidectomy, Appendectomy, Cholecystectomy, Coronary Bypass/CABG, Heart Catheterization, Orthopedic Surgery, Tonsillectomy Additional Past Surgical History / Comment(s): Cabg 4 vessel 2005? in [facility], right shoulder rotator cuff repair, right knee arthroscopy, R metatarsal surgery after fx, colonoscopy- normal Past Anesthesia/Blood Transfusion Reactions: Postoperative Nausea & Vomiting (PONV) Additional Past Anesthesia/Blood Transfusion Reaction / Comment(s): Pt has received blood in past without reaction. Past Psychological History: No Psychological Hx Reported Smoking Status: Former smoker Past Alcohol Use History: Occasional Past Drug Use History: None Reported - Past Family History Father Family Medical History: Congestive Heart Failure (CHF), CVA/TIA, Myocardial Infarction ([place]) Additional Family Medical History / Comment(s): Father at age 61 yrs. Mother Family Medical History: Congestive Heart Failure (CHF) Additional Family Medical History / Comment(s): Mother at age 83yrs. Medications and Allergies Home Medications Medication Instructions Recorded Confirmed Type Atorvastatin [Lipitor] 40 mg PO DAILY 05/23/14 02/06/24 History Aspirin EC [Ecotrin Low Dose] 81 mg PO HS 09/19/17 02/06/24 History Rivaroxaban [Xarelto] 20 mg PO HS 09/19/17 02/06/24 History carvediloL [Coreg] 6.25 mg PO BID 01/13/20 02/06/24 History Calcium Carbonate [Calcium] 600 mg PO HS 12/11/20 02/06/24 History Cholecalciferol [Vitamin D3 (25 25 mcg PO HS 12/11/20 02/06/24 History Mcg = 1000 Iu)] Vit No.180/Iron/Folic 1 tab PO HS 12/11/20 02/06/24 History [ Plus Tablet] lisinopriL [Zestril] 10 mg PO BID 12/11/20 02/06/24 History Nitrofurantoin Macrocrystal 50 mg PO HS 02/06/24 02/06/24 History [Macrodantin] Numaqula 1 cap PO DAILY 02/06/24 02/06/24 History Numaqula 2 cap PO HS 02/06/24 02/06/24 History Allergies Allergy/AdvReac Type Severity Reaction Status Date / Time albuterol AdvReac Rapid Verified 02/06/24 07:26 Heart Rate codeine AdvReac Rapid Verified 02/06/24 07:26 Heart Rate sulfamethoxazole AdvReac Nausea & Verified 02/06/24 07:26 [From Bactrim] Vomiting trimethoprim [From Bactrim] AdvReac Nausea & Verified 02/06/24 07:26 Vomiting warfarin [From Coumadin] AdvReac coumadin Verified 02/06/24 07:26 toxicity Physical Exam Vitals: Vital Signs Temp Pulse Resp BP Pulse Ox 02/06/24 09:00 16 169/79 02/06/24 08:01 98.1 F 70 18 179/94 94 L 02/06/24 06:05 98.3 F 75 19 176/96 96 02/06/24 02:44 98.4 F 70 18 176/92 96 02/06/24 00:16 97.7 F 80 18 190/85 96 02/05/24 22:53 71 184/98 02/05/24 22:06 97.7 F 82 20 176/76 97 Intake and Output 02/05/24 02/06/24 02/06/24 22:59 06:59 14:59 Other: Weight 77.111 kg Results CBC & Chem 7: 02/05/24 22:57 02/05/24 22:57 Labs: Abnormal Lab Results - Last 24 Hours (Table) 02/05/24 02/05/24 Range/Units 22:57 22:57 PT 13.7 H (10.0-12.5) sec INR 1.3 H (<1.2) APTT 37.6 H (22.0-30.0) sec Glucose 133 H (74-99) mg/dL
[2024-02-07] MEDS ORDERED: REGADENOSON 0.4 MG/5 ML SYRINGE IV PRN (07:00)
[2024-02-07] MEDS ORDERED: CAFFEINE CITRATE 60 MG/3 ML VIAL IV PRN (07:00)
[2024-02-07] MEDS ORDERED: AMINOPHYLLINE 500 MG/20 ML VIAL IV PRN (07:00)
[2024-02-07] MEDS ORDERED: REGADENOSON 0.4 MG/5 ML SYRINGE IV ONE (08:00)
[2024-02-07] MEDS: ATORVASTATIN 40 MG TAB PO SCH (08:33)
--- NOTE | 2024-02-07 08:40 | CA ---
Transthoracic Echo Report Name: Marielena Alva Age: 83 Gender: F : 1940 Exam Date: 02/06/2024 16:03 Exam Location: [facility] Ht (in): 64 Wt (lb): 170 Ordering Physician: Dorys Barrow Attending/Referring Phys: [id number], Pushpa Valving Machine Operator Juana German RDCS Procedure CPT: Indications: LV function, CP Cardiac Hx: Technical Quality: Good Contrast 1: Total Dose (mL): Contrast 2: Total Dose (mL): MEASUREMENTS (Male / Female) Normal Values 2D ECHO LV Diastolic Diameter PLAX 5.0 cm 4.2 - 5.9 / 3.9 - 5.3 cm LV Systolic Diameter PLAX 3.7 cm IVS Diastolic Thickness 1.0 cm 0.6 - 1.0 / 0.6 - 0.9 cm LVPW Diastolic Thickness 1.2 cm 0.6 - 1.0 / 0.6 - 0.9 cm LV Relative Wall Thickness 0.4 LVOT Diameter 2.2 cm LV Diastolic Volume MOD BP 105.8 cm??? 67 - 155 / 56 - 104 cm??? LV Systolic Volume MOD BP 35.7 cm??? 22 - 58 / 19 - 49 cm??? LV Ejection Fraction MOD BP 66.2 % >= 55 % LV Cardiac Index MOD BP 2965.6 cm???/min???m??? LV Diastolic Volume MOD 4C 98.2 cm??? LV Systolic Volume MOD 4C 37.1 cm??? LV Ejection Fraction MOD 4C 62.2 % LV Cardiac Index MOD 4C 2585.2 cm???/min???m??? LV Diastolic Length 4C 7.6 cm LV Systolic Length 4C 5.9 cm LV Diastolic Volume MOD 2C 109.6 cm??? LV Systolic Volume MOD 2C 32.4 cm??? LV Ejection Fraction MOD 2C 70.4 % LV Cardiac Index MOD 2C 3269.6 cm???/min???m??? LV Diastolic Length 2C 7.9 cm LV Systolic Length 2C 6.3 cm LA Volume 236.3 cm??? 18 - 58 / 22 - 52 cm??? LA Volume Index 125.1 cm???/m??? 16 - 28 cm???/m??? Ascending Aorta Diameter 3.8 cm DOPPLER AV Peak Velocity 218.6 cm/s AV Peak Gradient 19.1 mmHg AV Mean Velocity 142.2 cm/s AV Mean Gradient 9.3 mmHg AV Velocity Time Integral 42.2 cm MV Peak Velocity 185.3 cm/s MV Peak Gradient 13.7 mmHg MV Mean Velocity 108.4 cm/s MV Mean Gradient 5.6 mmHg MV Velocity Time Integral 35.3 cm MR Peak Velocity 581.4 cm/s MR Peak Gradient 135.2 mmHg MR Flow Rate PISA 84.8 cm???/s MR ERO PISA 0.1 cm??? MR Regurgitant Volume PISA 30.1 cm??? TR Peak Velocity 294.4 cm/s TR Peak Gradient 34.7 mmHg Right Atrial Pressure 20.0 mmHg Pulmonary Artery Systolic Pressu 54.7 mmHg Right Ventricular Systolic Press 54.7 mmHg PV Peak Velocity 81.4 cm/s PV Peak Gradient 2.7 mmHg FINDINGS Left Ventricle Left ventricular ejection fraction is estimated at 50-55 %. Mildly increased septal wall thickness. Mildly increased posterior wall thickness. Mildly increased left ventricular diastolic volume. No obvious regional wall motion abnormalities. Right Ventricle Right ventricular dilatation mild with normal function. Moderate pulmonary hypertension. Right Atrium Severe right atrial dilatation. Left Atrium Severely increased left atrial volume. Severely increased left atrial area. Mitral Valve Mitral valve thickened. Mitral annular calcification. No evidence for mitral valve prolapse. Moderate mitral stenosis. Moderate mitral regurgitation. Aortic Valve Bicuspid aortic valve. Raphe right and left cusp. Mild aortic stenosis. Moderate aortic regurgitation. Tricuspid Valve Structurally normal tricuspid valve. No tricuspid stenosis. [id number] tricuspid regurgitation. Pulmonic Valve Structurally normal pulmonic valve. No pulmonic stenosis. Mild pulmonic regurgitation. Pericardium No pericardial effusion. Aorta Mildly dilated aortic annulus. Upper limits of normal ascending aorta. CONCLUSIONS LV size is normal fairly well-preserved systolic function with mild to moderate concentric LVH. Ejection fraction is about 50-55%. There is mitral annular calcification with moderate mitral regurgitation. There is also mild mitral stenosis. There is mild right ventricular dilatation. Significant dilatation of both atria are noted. There is moderate to severe tricuspid regurgitation with moderate pulmonary hypertension. Aortic valve is calcified. Cannot comment if it is trileaflet are not. There is mild stenosis with moderate regurgitation. Previewed by: Dr. Aftab Wall MD (Electronically Signed) Final Date: 07 February 2024 08:39
--- NOTE | 2024-02-07 10:55 | P.PN ---
Subjective HISTORY OF PRESENT ILLNESS: This is a 83-year-old female with a past medical history significant for coronary artery disease with previous CABG, persistent atrial fibrillation, valvular heart disease, sick sinus syndrome, hypertension, and hyperlipidemia. Patient follows in the office with Dr. Ramos. We have been asked to see the patient in consultation for chest pain. Patient examined at the bedside in the emergency room. Patient reports having chest pain that began yesterday. She states the pain was in the middle of her chest and did not radiate anywhere. She did report having associated shortness of breath and nausea. At the time of examination, the patient denies any chest pain or pressure. Bedside telemetry reveals atrial fibrillation with controlled ventricular rate. Blood pressure elevated this morning with a reading of 169/79. DIAGNOSTICS: - EKG reveals atrial fibrillation with controlled ventricular rate. No signs of acute ischemia. - Chest xray probable chronic scarring bilateral costophrenic angles. Cardiome giselle with vascular prominence. - Laboratory data: WBC 10.4. Hemoglobin 13.2. Platelet count 181. Sodium 139. Potassium 3.6. BUN 15. Creatinine 0.64. Magnesium 1.7. Troponin negative x 2. - Current home cardiac medications include aspirin 81 mg daily, lisinopril 10 mg twice a day, atorvastatin 40 mg daily, Xarelto 20 mg at night, carvedilol 6.25 mg twice a day - Most recent echocardiogram obtained in September 2022 revealed ejection fraction 55%, mild concentric LVH, moderate aortic regurgitation, moderate mitral regurgitation, severe tricuspid regurgitation. - Patient underwent Lexiscan stress test in November 2021 revealing probably normal myocardial perfusion function with fixed anterior wall defect secondary to soft tissue attenuation 02/07/2024 Patient examined this morning at the bedside. Patient denies chest pain or pressure. She denies shortness of breath. Vital signs are stable. Echocardiogram completed revealing ejection fraction 50 to 55%, moderate pulmonary hypertension, moderate mitral regurgitation, mild aortic stenosis, moderate to severe tricuspid regurgitation. Patient's blood pressure remains elevated this morning. Patient's lisinopril was increased yesterday to 20 mg twice a day. PHYSICAL EXAM: VITAL SIGNS: Reviewed. GENERAL: Well-developed in no acute distress. HEENT: Head is normocephalic. Pupils are equal, round. Sclerae anicteric. Mucous membranes of the mouth are moist. Neck supple. No JVD or thyromegaly LUNGS: Respirations even and unlabored. Lungs essentially clear to auscultation bilaterally. HEART: Irregular rate and rhythm. S1 and S2 heard. Systolic murmur noted ABDOMEN: Soft. Nondistended. Nontender. EXTREMITIES: Normal range of motion. No clubbing or cyanosis. Peripheral pulses intact. No lower extremity edema NEUROLOGIC: Awake and alert. Oriented x 3. ASSESSMENT: Chest pain, troponin negative x 2 Coronary artery disease with previous CABG Hypertension, uncontrolled on admission Persistent atrial fibrillation with controlled ventricular rate Valvular heart disease including moderate MR, mild , moderate to severe TR History of sick sinus syndrome Hyperlipidemia Moderate pulmonary hypertension PLAN: Continue current cardiac medications Patient's lisinopril was increased yesterday to 20 mg twice a day for optimal blood pressure control Patient scheduled for Lexiscan stress test this morning. Await results If Lexiscan stress test is negative, patient may be discharged home from a cardiac standpoint Further recommendations pending patient course Nurse practitioner note has been reviewed by physician. Signing provider agrees with the documented findings, assessment, and plan of care documented by INFORMATION AND REFERRAL DIRECTOR as a scribe. Objective - Vital Signs Vital signs: Vital Signs Temp 97.7 F 02/07/24 07:37 Pulse 86 02/07/24 07:37 Resp 20 02/07/24 07:37 BP 184/79 02/07/24 07:37 Pulse Ox 96 02/07/24 07:37 FiO2 Intake & Output 02/06/24 02/07/24 02/07/24 18:59 06:59 18:59 Weight 77.111 kg Other: Voiding Method Toilet Toilet # Voids 2 - Labs CBC & Chem 7: 02/05/24 22:57 02/05/24 22:57
--- NOTE | 2024-02-07 11:14 | CA ---
Lexiscan Nuclear Stress Test Report Name: Marielena Alva Exam Date: 02/07/2024 09:15 Exam Location: [place] Stress Ht (in): 64 Wt (lb): 170 BSA: 1.83 Ordering Phys: Dorys Barrow Referring Phys: GISSELLE SANFORD Technologist: Abdelrahman Stafford Age: 83 Gender: F : 1940 Procedure CPT: Indications: Reflex order-Stress test ICD-10 Codes: Patient History: Medications: SEE CHART Meds past 24 hrs: Pretest Chest Pain: STRESS TEST Lexiscan Protocol Exercise Duration (min:sec): 01:[address] Depressions (mm): Angina Score: Zaragoza Score: Resting HR (bpm): 66 Peak HR (bpm): 90 Resting BP (mmHg): 116 / 75 Peak BP (mmHg): 169 / 70 MPHR: 139 Target HR: 118 % MPHR: 65 METS: 1.0 Total Dose: Peak Dose: Atropine: Double Product: 30793 BP Response: Stress Termination: INFUSION COMPLETE Stress Symptoms: NO SYMPTOMS Stress Summary: ECG ANALYSIS Resting ECG: Stress ECG: CONCLUSIONS Baseline EKG revealed atrial fibrillation with controlled ventricular rate and nonspecific ST and T-wave changes. With Lexiscan administration the heart rate changed from 66-85 bpm and blood pressure changed from 116/75-150/71. Patient was asymptomatic and EKG was inconclusive. By EKG criteria this is an inconclusive Lexiscan stress test because of resting EKG changes. The nuclear scan results which are more pertinent will be reported with radiology Dr. Aftab Sanford MD (Electronically Signed) Final Date: 07 February 2024 11:13
--- NOTE | 2024-02-07 13:16 | NM ---
EXAMINATION TYPE: NM stress lexiscan cardiolite DATE OF EXAM: 02/07/2024 COMPARISON: NONE CLINICAL INDICATION: Female, 83 years old with history of CP; TECHNIQUE: After the intravenous administration of 9.45 mCi Tc 99m Sestamibi - Cardiolite resting SP ECT images acquired 90 minutes post injection. The patient received 0.4mg Lexiscan, 26.6 mCi Tc 99m Sestamibi - Stress images obtained [address] injection FINDINGS: Review of stress and rest SPECT images demonstrates no distinct perfusion abnormality. Gated analysi s shows normal wall motion with an estimated left ventricular ejection fraction of 63 %. TID is calc ulated at 0.93, within normal limits. IMPRESSION: No scintigraphic evidence for reversible ischemia. [facility], , 02/07/2024 1:14 PM
[2024-02-07 13:40] VITALS: BP 155/76; PULSE 77; RESP 17; TEMP 97.5
[2024-02-07 14:21] VITALS: BMI 29.2
--- NOTE | 2024-02-07 14:43 | P.DS ---
Providers Date of admission: 02/05/24 23:41 Attending physician: Mariano Jaquez Consults: 02/05/24 23:53 Consult Physician Urgent Consulting Provider: Se aRmos Consult Reason/Comments: chest pain Do you want consulting provider notified?: Yes, Notify in am Primary care physician: Verito Khan Hospital Course: Final Diagnosis -Probable unstable angina in the patient with known CAD -CAD with prior bypass -Persistent atrial flutter fibrillation currently in sinus rhythm -Essential hypertension -Primary osteoarthritis Discharge Disposition Patient is stable for discharge home will continue all same home medications. Follow-up with her normal scrap preparer in the office in 1 to 2 weeks. Hospital Course Is a pleasant 83 female who follows with Dr. Khan in the outpatient setting. Patient sees Dr. [facility]. Patient has a past medical history significant for paroxysmal atrial fibrillation, coronary artery disease with prior stenting and coronary bypass in [place], hypertension, hyperlipidemia. Patient comes in for 2-day history of having heaviness in the chest and some heart racing reports feeling there is an elephant sitting on her chest. She is not having any associated dizziness or lightheadedness there is no radiation of the pain and she is not having any shortness of breath. Patient came in for further evaluation was admitted to the hospital under medical services with a consult placed to cardiology. Troponin levels were negative x 3. Patient had an echocardiogram done which revealed Ejection Fraction of 50 to 55% with moderate mitral regurgitation mild mitral stenosis mild right ventricular dilation significant dilation of both atria are noted. Moderate to severe tricuspid regurgitation with moderate pulmonary hypertension. There is m ild aortic stenosis with moderate aortic regurgitation. At the time of my evaluation patient is currently not having any further reports of chest pain. She underwent Lexiscan stress test which was negative for any reversible ischemia. Patient does report that she is having loose stools over the last couple days. She is not having abdominal pain tenderness no nausea or vomiting. She denies any recent illness. Has been maintained on Macrobid on a daily basis for UTI prevention. We will check a C. difficile before discharge if negative she can discharge home and follow-up with GI in the office of the diarrhea is not improving in a couple days. He is not have any chest pain or shortness of breath nausea vomiting or diarrhea she is not having dizziness or lightheadedness. Discharged home Please see medication reconciliation for a list of current medications. Thank you for allowing us to participate in the care of this patient. The impression and plan of care has been dictated by Marcella Alva, Nurse Practitioner as directed. Dr. Albaro MD I have performed a history and physical examination and medical decision making of this patient, discussed the same with the dictator, and agree with the dictators assessment and plan as written, documented as a scribe. Based on total visit time, I have performed more than 50% of this visit. Patient Condition at Discharge: Stable Plan - Discharge Summary Discharge Rx Participant: No New Discharge Prescriptions: Continue Atorvastatin [Lipitor] 40 mg PO DAILY Aspirin EC [Ecotrin Low Dose] 81 mg PO HS Rivaroxaban [Xarelto] 20 mg PO HS carvediloL [Coreg] 6.25 mg PO BID Vit No.180/Iron/Folic [ Plus Vitamin-Mineral] 1 tab PO HS Numaqula 2 cap PO HS Cholecalciferol [Vitamin D3 (25 Mcg = 1000 Iu)] 25 mcg PO HS Calcium Carbonate [Calcium] 600 mg PO HS lisinopriL [Zestril] 10 mg PO BID Nitrofurantoin Macrocrystal [Macrodantin] 50 mg PO HS Numaqula 1 cap PO DAILY Discharge Medication List Atorvastatin [Lipitor] 40 mg PO DAILY 05/23/14 [History] Aspirin EC [Ecotrin Low Dose] 81 mg PO HS 09/19/17 [History] Rivaroxaban [Xarelto] 20 mg PO HS 09/19/17 [History] carvediloL [Coreg] 6.25 mg PO BID 01/13/20 [History] Calcium Carbonate [Calcium] 600 mg PO HS 12/11/20 [History] Cholecalciferol [Vitamin D3 (25 Mcg = 1000 Iu)] 25 mcg PO HS 12/11/20 [History] Vit No.180/Iron/Folic [ Plus Vitamin-Mineral] 1 tab PO HS 12/11/20 [History] lisinopriL [Zestril] 10 mg PO BID 12/11/20 [History] Nitrofurantoin Macrocrystal [Macrodantin] 50 mg PO HS 02/06/24 [History] Numaqula 1 cap PO DAILY 02/06/24 [History] Numaqula 2 cap PO HS 02/06/24 [History] Follow up Appointment(s)/Referral(s): Verito Khan MD [Primary Care Provider] - 1-2 days Toshia Rodriguez MD [STAFF PHYSICIAN] - 1 Week (GI specialist ) Activity/Diet/Wound Care/Special Instructions: Follow up with your known scrap preparer Discharge Disposition: HOME SELF-CARE
== END 2024-02-07 15:36 | disposition home or self-care (01) ==
LOC: EC 21:54 → 6NMEDSUR 23:41
PROVIDERS: ADMIT Hospitalist; ATTEND Hospitalist
DX: I25.110 Atherosclerotic heart disease of native coronary artery with unstable angina pectoris (principal); I48.19 Other persistent atrial fibrillation; I48.92 Unspecified atrial flutter; I49.5 Sick sinus syndrome; E11.9 Type 2 diabetes mellitus without complications; I50.9 Heart failure, unspecified; I11.0 Hypertensive heart disease with heart failure; I27.20 Pulmonary hypertension, unspecified; I08.3 Combined rheumatic disorders of mitral, aortic and tricuspid valves; E78.5 Hyperlipidemia, unspecified; M19.91 Primary osteoarthritis, unspecified site; Z79.01 Long term (current) use of anticoagulants; Z79.52 Long term (current) use of systemic steroids; Z79.899 Other long term (current) drug therapy; Z87.891 Personal history of nicotine dependence; Z88.1 Allergy status to other antibiotic agents; Z88.2 Allergy status to sulfonamides; Z88.5 Allergy status to narcotic agent; Z88.8 Allergy status to other drugs, medicaments and biological substances; Z95.1 Presence of aortocoronary bypass graft; Z95.5 Presence of coronary angioplasty implant and graft; Z82.49 Family history of ischemic heart disease and other diseases of the circulatory system
CPT/HCPCS: 96360; 96361; 99285; 36415; 93005; 93017; 93306; 80053; 83735; 84484 ×2; 85025; 85610; 85730; 71046; 78452; G0378 ×2; A9500; J2785

== ENCOUNTER 2024-04-11 22:37 | Emergency (ER) | payer MEDICARE, OTHER ==
[2024-04-11 22:43] VITALS: RESP 18
--- NOTE | 2024-04-11 22:54 | ED ---
General Adult HPI - General Source: patient Mode of arrival: ambulatory Limitations: no limitations <Reny Camara - Last Filed: 04/24/24 20:54> - History of Present Illness Onset/Timin -: days(s) Location: head Radiation: non-radiation Quality: sharp Consistency: constant Improves with: none Worsens with: none Associated Symptoms: denies other symptoms Treatments Prior to Arrival: none <Jonny Ross - Last Filed: 04/27/24 18:56> - General Chief complaint: Headache Stated complaint: Headache Time Seen by Provider: 04/11/24 22:53 - History of Present Illness Initial comments: Quick note: 83-year-old female presenting with chief complaint of headache. She is also complaining of tinnitus in the right ear, states that it feels in sync with her heartbeat. (eRny Camara) This patient is an 83-year-old woman who presents to have evaluation of headache. The patient relates that she had celebrated with family and then when she went home that night she developed very severe right sided headache. She states that the pain has continued since that time though not to that severity. She also at times had noted a rushing sound in the right ear. The patient states that in addition she had been going up stairs and fell forward on the stairs. She does not believe that she struck her head. She did not lose consciousness. She denies any other injury. As the headache continued through to today she felt she should have evaluation. States that she takes Xarelto (Jonny Ross) - Related Data Home Medications Medication Instructions Recorded Confirmed Atorvastatin [Lipitor] 40 mg PO DAILY 05/23/14 02/06/24 Aspirin EC [Ecotrin Low Dose] 81 mg PO HS 09/19/17 02/06/24 Rivaroxaban [Xarelto] 20 mg PO HS 09/19/17 02/06/24 carvediloL [Coreg] 6.25 mg PO BID 01/13/20 02/06/24 Calcium Carbonate [Calcium] 600 mg PO HS 12/11/20 02/06/24 Cholecalciferol [Vitamin D3 (25 25 mcg PO HS 12/11/20 02/06/24 Mcg = 1000 Iu)] Vit No.180/Iron/Folic 1 tab PO HS 12/11/20 02/06/24 [ Plus Vitamin-Mineral] lisinopriL [Zestril] 10 mg PO BID 12/11/20 02/06/24 Nitrofurantoin Macrocrystal 50 mg PO HS 02/06/24 02/06/24 [Macrodantin] Numaqula 1 cap PO DAILY 02/06/24 02/06/24 Numaqula 2 cap PO HS 02/06/24 02/06/24 Allergies Allergy/AdvReac Type Severity Reaction Status Date / Time albuterol AdvReac Rapid Verified 04/11/24 22:43 Heart Rate codeine AdvReac Rapid Verified 04/11/24 22:43 Heart Rate sulfamethoxazole AdvReac Nausea & Verified 04/11/24 22:43 [From Bactrim] Vomiting trimethoprim [From Bactrim] AdvReac Nausea & Verified 04/11/24 22:43 Vomiting warfarin [From Coumadin] AdvReac coumadin Verified 04/11/24 22:43 toxicity Review of Systems ROS Other: All systems not noted in ROS Statement are negative. <Reny Camara - Last Filed: 04/24/24 20:54> ROS Other: All systems not noted in ROS Statement are negative. Constitutional: Denies: fever, chills, weakness Eyes: Denies: eye pain, vision change ENT: Denies: ear pain, hearing loss Respiratory: Denies: cough, dyspnea Cardiovascular: Denies: chest pain, palpitations, edema Gastrointestinal: Denies: abdominal pain Genitourinary: Denies: dysuria Musculoskeletal: Denies: back pain Skin: Denies: rash Neurological: Reports: headache. Denies: weakness, numbness, paresthesias, confusion <Jonny Ross - Last Filed: 04/27/24 18:56> ROS Statement: Those systems with pertinent positive or pertinent negative responses have been documented in the HPI. Past Medical History Past Medical History: Atrial Fibrillation, Coronary Artery Disease (CAD), Chest Pain / Angina, Heart Failure, Diabetes Mellitus, Hyperlipidemia, Hypertension, Pneumonia Additional Past Medical History / Comment(s): Afib/flutter, blood loss anemia/syncope after teeth extraction/hemorrhage with blood transfusion, murmur, hypomagnesemia, frequent UTIs/bladder tipped and does not empty entirely, past r foot fracture with surgery.diet controlled diabetic History of Any Multi-Drug Resistant Organisms: MRSA Date of last positivie culture/infection: 2012 MDRO Source:: wound left abdomen Past Surgical History: Adenoidectomy, Appendectomy, Cholecystectomy, Coronary Bypass/CABG, Heart Catheterization, Orthopedic Surgery, Tonsillectomy Additional Past Surgical History / Comment(s): Cabg 4 vessel 2005, in [facility], right shoulder rotator cuff repair, right knee arthroscopy, R metatarsal surgery after fx, colonoscopy- normal, fratured fibula and 5th metatarsal Past Anesthesia/Blood Transfusion Reactions: Postoperative Nausea & Vomiting (PONV) Additional Past Anesthesia/Blood Transfusion Reaction / Comment(s): Pt has received blood in past without reaction. Past Psychological History: No Psychological Hx Reported Smoking Status: Former smoker Past Alcohol Use History: Occasional Past Drug Use History: None Reported - Past Family History Father Family Medical History: Congestive Heart Failure (CHF), CVA/TIA, Myocardial Infarction (OR) Additional Family Medical History / Comment(s): Father at age 61 yrs. Mother Family Medical History: Congestive Heart Failure (CHF) Additional Family Medical History / Comment(s): Mother at age 83yrs. <Reny Camara - Last Filed: 04/24/24 20:54> General Exam Limitations: no limitations <Rney Camara - Last Filed: 04/24/24 20:54> Limitations: no limitations General appearance: alert, in no apparent distress Head exam: Present: atraumatic, normocephalic Eye exam: Present: normal appearance, PERRL, EOMI. Absent: scleral icterus, conjunctival injection, nystagmus ENT exam: Present: normal oropharynx Neck exam: Present: normal inspection, full ROM. Absent: tenderness, meni ngismus Respiratory exam: Present: normal lung sounds bilaterally. Absent: respiratory distress, wheezes, rales, rhonchi, stridor, accessory muscle use Cardiovascular Exam: Present: regular rate, normal rhythm, normal heart sounds. Absent: systolic murmur, diastolic murmur, rubs, gallop GI/Abdominal exam: Present: soft. Absent: distended, tenderness, guarding, rebound, rigid, mass Extremities exam: Present: normal inspection, normal capillary refill. Absent: pedal edema, calf tenderness Back exam: Present: normal inspection. Absent: CVA tenderness (R), CVA tendern ess (L) Neurological exam: Present: alert, oriented X3, CN II-XII intact. Absent: motor sensory deficit Skin exam: Present: warm, dry, intact, normal color. Absent: rash <Jonny Ross - Last Filed: 04/27/24 18:56> - General Exam Comments Initial Comments: Visual Physical Exam Vital signs reviewed General: Well-appearing, nontoxic, no acute distress. Head: Normocephalic, atraumatic Eyes: PERRLA, EOMI ENT: Airway patent Chest: Nonlabored breathing Skin: No visual rash, normal skin tone Neuro: Alert and oriented 3 Musculoskeletal: No gross abnormalities (Reny Camara) Course Vital Signs 04/11/24 04/12/24 22:40 03:40 Temperature 97.9 F 98.1 F Pulse Rate 72 79 Respiratory 18 18 Rate Blood Pressure 173/79 172/90 O2 Sat by Pulse 97 98 Oximetry Medical Decision Making - Lab Data Result diagrams: 04/11/24 23:20 04/11/24 23:20 <Reny Camara - Last Filed: 04/24/24 20:54> - Lab Data Result diagrams: 04/11/24 23:20 04/11/24 23:20 <Jonny Ross - Last Filed: 04/27/24 18:56> - Medical Decision Making I performed the quick note portion of this visit, electronically signed Reny Camara PA-C (Reny Camara) Patient is 83-year-old woman with severe headache found to have area of hemorrhage adjacent to a calcification of the right choroid plexus. Case di scussed with transfer team at [facility]. Case initially discussed with trauma as the patient did have ground-level fall. , who accepted transfer. Attempt to order reversal of Xarelto but no Andexxa availability The patient had CT scan of the brain that I interpreted as revealing acute intracranial hemorrhage. Was pt. sent in by a medical professional or institution (MUNIR Elkins, AUTOMOBILE RADIATOR MECHANIC, urgent care, hospital, or intermediate...) When possible be specific @ -[No] Did you speak to anyone other than the patient for history (EMS, parent, family, police, friend...)? What history was obtained from this source @ -[No] Did you review nursing and triage notes (agree or disagree)? Why? @ -[I reviewed and agree with nursing and triage notes] Were old charts reviewed (outside hosp., previous admission, EMS record, old EKG, old radiological studies, urgent care reports/EKG's, intermediate records)? Report findings @ -[No old charts were reviewed] Differential Diagnosis (chest pain, altered mental status, abdominal pain women, abdominal pain men, vaginal bleeding, weakness, fever, dyspnea, syncope, headache, dizziness, GI bleed, back pain, seizure, CVA, palpatations, mental health, musculoskeletal)? @ -[Differential Headache: Migraine, tension, cluster, carbon monoxide, central venous thrombosis, pension karma temporal arteritis, acute closure glaucoma, intercranial hemorrhage, mastoiditis, sinusitis, head injury, this is not meant to be an all-inclusive list. EKG interpreted by me (3pts min.). @ -[As above] X-rays interpreted by me (1pt min.). @ -[None done] CT interpreted by me (1pt min.). @ -[I interpreted as above as documented above U/S interpreted by me (1pt. min.). @ -[None done] What testing was considered but not performed or refused? (CT, X-rays, U/S, labs)? Why? @ -[None] What meds were considered but not given or refused? Why? @ -[None] Did you discuss the management of the patient with other professionals (professionals i.e. , PA, AUTOMOBILE RADIATOR MECHANIC, lab, RT, psych nurse, social security specialist, budget examiner, teacher, staff antisubmarine officer, wrapper caser)? Give summary @ -[ Case discussed with the transfer team and then with Dr. Tineo who will accept transfer Was smoking cessation discussed for >3mins.? @ -[No] Was critical care preformed (if so, how long)? @ -[Yes, 35 minutes Were there social determinants of health that impacted care today? How? (Homelessness, low income, unemployed, alcoholism, drug addiction, transportation, low edu. Level, literacy, decrease access to med. care, shelter, rehab)? @ -[No] Was there de-escalation of care discussed even if they declined (Discuss DNR or withdrawal of care, Hospice)? DNR status @ -[No] What co-morbidities impacted this encounter? (DM, HTN, Smoking, COPD, CAD, Cancer, CVA, ARF, Chemo, Hep., AIDS, mental health diagnosis, sleep apnea, morbid obesity)? @ -[Hypertension Was patient admitted / discharged? Hospital course, mention meds given and route, prescriptions, significant lab abnormalities, going to OR and other pertinent info. @ -[See above Undiagnosed new problem with uncertain prognosis? @ -[No] Drug Therapy requiring intensive monitoring for toxicity (Heparin, Nitro, Insulin, Cardizem)? @ -[No] Were any procedures done? @ -[No] Diagnosis/symptom? @ -[Acute intracranial hemorrhage Acute, or Chronic, or Acute on Chronic? @ -[Acute Uncomplicated (without systemic symptoms) or Complicated (systemic symptoms)? @ -[Complicated Side effects of treatment? @ -[No] Exacerbation, Progression, or Severe Exacerbation? @ -[No] Poses a threat to life or bodily function? How? (Chest pain, USA, OR, pneumonia, PE, COPD, DKA, ARF, appy, cholecystitis, CVA, Diverticulitis, Homicidal, Suici sarath, threat to staff... and all critical care pts) @ -[Yes, requires prompt neurosurgical evaluation All treatments are based on ideal body weight as in ED triage (Jonny Ross) - Lab Data Lab Results 04/11/24 04/11/24 04/11/24 Range/Units 23:20 23:20 23:20 WBC 10.3 (3.8-10.6) k/uL RBC 4.43 (3.80-5.40) m/uL Hgb 12.8 (11.4-16.0) gm/dL Hct 39.3 (34.0-46.0) % MCV 88.7 D (80.0-100.0) fL MCH 29.0 (25.0-35.0) pg MCHC 32.7 (31.0-37.0) g/dL RDW 15.8 H (11.5-15.5) % Plt Count 165 (150-450) k/uL MPV 10.3 Neutrophils % 70 % Lymphocytes % 20 % Monocytes % 6 % Eosinophils % 2 % Basophils % 1 % Neutrophils # 7.2 (1.3-7.7) k/uL Lymphocytes # 2.1 (1.0-4.8) k/uL Monocytes # 0.6 (0-1.0) k/uL Eosinophils # 0.2 (0-0.7) k/uL Basophils # 0.1 (0-0.2) k/uL Manual Slide Review Performed Tear Drop Cells Present Ovalocytes Present Fragmented RBCs Present PT 18.1 H (10.0-12.5) sec INR 1.8 H (<1.2) APTT 45.7 H (22.0-30.0) sec Sodium 136 L (137-145) mmol/L Potassium 3.6 (3.5-5.1) mmol/L Chloride 107 (98-107) mmol/L Carbon Dioxide 24 (22-30) mmol/L Anion Gap 5 mmol/L BUN 19 H (7-17) mg/dL Creatinine 0.60 (0.52-1.04) mg/dL Est GFR (CKD-EPI)AfAm >90 (>60 ml/min/1.73 sqM) Est GFR (CKD-EPI)NonAf 86 (>60 ml/min/1.73 sqM) Glucose 94 (74-99) mg/dL Calcium 9.4 (8.4-10.2) mg/dL Total Bilirubin 0.9 (0.2-1.3) mg/dL AST 25 (14-36) U/L ALT 26 (4-34) U/L Alkaline Phosphatase 87 (38-126) U/L Troponin I (0.000-0.034) ng/mL Total Protein 6.5 (6.3-8.2) g/dL Albumin 4.0 (3.5-5.0) g/dL 04/11/24 Range/Units 23:20 WBC (3.8-10.6) k/uL RBC (3.80-5.40) m/uL Hgb (11.4-16.0) gm/dL Hct (34.0-46.0) % MCV (80.0-100.0) fL MCH (25.0-35.0) pg MCHC (31.0-37.0) g/dL RDW (11.5-15.5) % Plt Count (150-450) k/uL MPV Neutrophils % % Lymphocytes % % Monocytes % % Eosinophils % % Basophils % % Neutrophils # (1.3-7.7) k/uL Lymphocytes # (1.0-4.8) k/uL Monocytes # (0-1.0) k/uL Eosinophils # (0-0.7) k/uL Basophils # (0-0.2) k/uL Manual Slide Review Tear Drop Cells Ovalocytes Fragmented RBCs PT (10.0-12.5) sec INR (<1.2) APTT (22.0-30.0) sec Sodium (137-145) mmol/L Potassium (3.5-5.1) mmol/L Chloride (98-107) mmol/L Carbon Dioxide (22-30) mmol/L Anion Gap mmol/L BUN (7-17) mg/dL Creatinine (0.52-1.04) mg/dL Est GFR (CKD-EPI)AfAm (>60 ml/min/1.73 sqM) Est GFR (CKD-EPI)NonAf (>60 ml/min/1.73 sqM) Glucose (74-99) mg/dL Calcium (8.4-10.2) mg/dL Total Bilirubin (0.2-1.3) mg/dL AST (14-36) U/L ALT (4-34) U/L Alkaline Phosphatase (38-126) U/L Troponin I <0.012 (0.000-0.034) ng/mL Total Protein (6.3-8.2) g/dL Albumin (3.5-5.0) g/dL Disposition <Reny Camara - Last Filed: 04/24/24 20:54> Is patient prescribed a controlled substance at d/c from ED?: No - Out of Hospital Transfer - Req. Specs Out of Hospital Transfer - Requested Specifics: Other Emergency Center <Jonny Ross - Last Filed: 04/27/24 18:56> Clinical Impression: Intracranial hemorrhage Disposition: OTHER INSTITUTION NOT DEFINED Condition: Serious Referrals: Verito Khan MD [Primary Care Provider] - 1-2 days
[2024-04-11 23:40] LABS: Basophils # (A) 0.1 k/uL (0-0.2); Basophils % (A) 1 %; Eosinophils # (A) 0.2 k/uL (0-0.7); Eosinophils % (A) 2 %; HCT 39.3 % (34.0-46.0); HGB 12.8 gm/dL (11.4-16.0); Lymphocytes # (A) 2.1 k/uL (1.0-4.8); Lymphocytes % (A) 20 %; MCHC 32.7 g/dL (31.0-37.0); Mean Platelet Volume 10.3; Monocytes # (A) 0.6 k/uL (0-1.0); Monocytes % (A) 6 %; Neutrophils # (A) 7.2 k/uL (1.3-7.7); Neutrophils % (A) 70 %; Platelet Count 165 k/uL (150-450); RBC 4.43 m/uL (3.80-5.40); RDW 15.8 % (11.5-15.5); WBC 10.3 k/uL (3.8-10.6)
[2024-04-11 23:52] LABS: MCV 88.7 fL (80.0-100.0)
[2024-04-11 23:53] LABS: INR 1.8 (<1.2); Partial Thromboplastin Time 45.7 sec (22.0-30.0); Prothrombin Time 18.1 sec (10.0-12.5)
[2024-04-12 00:11] LABS: ALT 26 U/L (4-34); AST 25 U/L (14-36); African American GFR (CKD) >90 (>60 ml/min/1.73 sqM); Alkaline Phosphatase 87 U/L (38-126); Anion Gap 5 mmol/L; Blood Urea Nitrogen 19 mg/dL (7-17); Calcium 9.4 mg/dL (8.4-10.2); Carbon Dioxide 24 mmol/L (22-30); Chloride 107 mmol/L (98-107); Glucose 94 mg/dL (74-99); Non-African American GFR(CKD) 86 (>60 ml/min/1.73 sqM); Potassium 3.6 mmol/L (3.5-5.1); Sodium 136 mmol/L (137-145); Total Bilirubin 0.9 mg/dL (0.2-1.3); Total Protein 6.5 g/dL (6.3-8.2)
[2024-04-12 00:30] LABS: Ovalocytes Present; Tear Drop Cells Present
[2024-04-12 00:31] LABS: RBC Fragments Present
[2024-04-12] MEDS: MORPHINE SULFATE 4 MG/ML SYRINGE IV STA (02:57)
--- NOTE | 2024-04-12 03:33 | CT ---
EXAM: CT Head Without Intravenous Contrast CLINICAL HISTORY: Headache, severe TECHNIQUE: Axial computed tomography images of the head/brain without intravenous contrast. CTDI is 49.1 mGy and DLP is 1125.4 mGy-cm. This CT exam was performed using one or more of the following dose reduction techniques: automated exposure control, adjustment of the mA and/or kV according to patient size, and/or use of iterative reconstruction technique. COMPARISON: 12-11-2020 FINDINGS: Brain/ventricles: Age-appropriate generalized atrophy. No acute stroke. Mild supratentorial periventricular and subcortical white matter changes. No acute hemorrhage or abnormal extra-axial fluid collection. Unchanged dense posterior lateral right frontal extra-axial calcification 10 mm diameter, likely a densely calcified. Redemonstrated bilateral prominent calcifications of the choroid plexus within the atria of the lateral ventricles. Interval increase in size and irregularity of the calcification in the right choroid plexus with mild surrounding intraventricular acute hemorrhage extending to the temporal horn. No hydrocephalus. No midline shift. Multiple scattered punctate 1 mm probable calcifications in the subarachnoid space greatest in the bilateral posterior temporal and occipital lobes, increased. Bones/joints: Unremarkable. No acute fracture. Soft tissues: Unremarkable. Sinuses: Unremarkable as visualized. No acute sinusitis. IMPRESSION: Intraventricular hemorrhage centered in the atria of the right lateral ventricle extending to the temporal horn, centered around the asymmetric partially calcified choroid plexus lesion, slightly increased in size. Appearance is nonspecific but suspicious for a primary or metastatic neoplasm in the absence of trauma. No hydrocephalus. Recommend correlation with contrast enhanced MRI when clinically appropriate. Subtle punctate 1 mm hyperdensities scattered in the subarachnoid space in the posterior temporal occipital lobes, possibly postinflammatory/infectious, slightly increased from 2020. Otherwise no change. <MYCVCSECTION> Communications: 04/12/24 03:33 Call Doctor Regarding Intracranial Hemorrhage, called Dr. Almeida on 04/12 03:33 (-05:00)
[2024-04-12 04:00] VITALS: BP 172/90; PULSE 79; TEMP 98.1
== END 2024-04-12 04:06 | disposition other institution (70) ==
LOC: EC 22:37
DX: S06.36AA Traumatic hemorrhage of cerebrum, unspecified, with loss of consciousness status unknown, initial encounter (principal); I10 Essential (primary) hypertension; Z88.1 Allergy status to other antibiotic agents; Z88.2 Allergy status to sulfonamides; Z88.5 Allergy status to narcotic agent; Z88.8 Allergy status to other drugs, medicaments and biological substances; Z87.891 Personal history of nicotine dependence; Z95.1 Presence of aortocoronary bypass graft; W10.9XXA Fall (on) (from) unspecified stairs and steps, initial encounter
CPT/HCPCS: 36415; 93005; 80053; 84484; 85025; 85610; 85730; 70450; 99285; 96374; J2270